=== PATIENT | female | born 1960 | race Caucasian/White ===

== ENCOUNTER 2025-03-12 13:09 | Outpatient (AMB) | payer OTHER, SELFPAY ==
--- OUTSIDE RECORDS SUMMARY | 2025-03-11 16:00 | XMS_ITS | Encounter Summary ---
Author Organization [employer] Address [address] [facility] [place] [address] Care Team Providers Care Regional Agronomist Name Role Phone Alexey Woods NP Primary Care Provider [phone] Holly TolbertW Unavailable [phone] Reason for Visit * Reason Comments Routine Cleaning Dental Exam Encounter Details Date Type Department Care Team (Late st Contact Info) Description 03/11/2025 4:00 PM EST Office Visit [facility] [address] [facility] [place] [address] Nitza Nichols Encounter for dental examination (Primary Dx); Periodontal disease Social History Tobacco Use Types Packs/Day Years Used Date Smoking Tobacco: Former Cigarettes Passive Smoke Exposure: Past Smokeless Tobacco: Never Comments:Quit at the age of 34 Alcohol Use Standard Drinks/Week Comments Yes 0 (1 standard drink = 0.6 oz pure alcohol) a few glasses of wine a few nights a week Alcohol Answer Date Recorded How often do you have a drink containing alcohol ? 0 03/11/2025 How many drinks containing a lcohol do you have on a typical day when you are drinking? 0 03/11/2025 How often do you have six or more drinks on one occasion? 0 03/11/2025 Depression Answer Date Recorded Patient Health Questionnaire-9 Score 16 01/08/2025 Patient Health Questionnaire-9 Score 16 01/08/2025 Last PHQ-9: Questionnaire Data Not on file 0 01/08/2025 Housing Stability Answer Date Recorded What is your housing situation today? I have jian lazaro 05/14/[address] you li ve. Do you have problems with any of the following? None of the above 05/14/2024 Food Insecurity Answer Date Recorded Within the past 12 months, y ou worried that your food would run out before you got money to buy more: Never True 05/14/2024 Within the past 12 months,th e food you bought just didn't last and you didn't have enough money to get more: Never True 06/2024 Transportation Answer Date Recorded In the past 12 months, has l ack of transportation kept you from medical appts, meetings, work or from getting things needed for daily living? No 05/14/2024 Utilities Answer Date Recorded In the past 12 months, has t he electric, gas, oil or water company threatened to shut off services in your home? No 05/14/2024 Depression Answer Date Recorded Patient Health Questionnaire-2 Score 6 01/08/2025 Internet Access Answer Date Recorded Internet Access Q1 Yes 05/14/2024 Internet Access Q2 Not on file 05/14/2024 Comments No Sex and Gender Information Value Date Recorded Sex Assigned at Female 02/10/2022 5:23 PM EDT Legal Sex Female 8:39 PM EDT Gender Identity Female 02/10/2022 5:23 PM EDT Sexual Orientation Straight 02/10/2022 5: 23 PM EDT Occupation Industry Job Start Date Job End Date Not on file Not on file Not on file Not on file documented as of this encounter Last Filed Vital Signs Vital Sign Reading Time Taken Comments Blood Pressure 143/92 03/11/2025 4:53 PM EST Pulse 85 03/11/2025 4:53 PM EST Temperature - - Respiratory Rate - - Oxygen Saturation - - Inhaled Oxygen Concentration - - Weight - - Height - - Body Mass Index - - documented in this encounter Progress Notes * Nitza Nichols - 03/11/2025 4:00 PM EST Prophy + ARCHANA Subjective: Chief Complaint (CC):--routine cleaning Medical History: Reviewed, Objective: Oral Hygiene Status: Fair Gingival Description: pink inflamed, with mild bleeding on probing Oral Cancer Exam: within normal limits Periodontal Diagnosis: STAGE II grade 2 chronic periodontitis Calculus: Moderate Supra / Subgingival Radiographs Taken: Type -None Caries/Radiographic Findings: as on the chart Vital Signs: BP- 145/92 HR-85 Patient given a note to the physician to address the BP. Assessment: Risk Factors: SMOKER Plan / Treatment Provided: Hygiene Treatment: Full-mouth prophylaxis performed using ultrasonic and hand instruments Teeth polished with Pumice Interdental flossing completed Oral hygiene instructions given and reinforced Brushing technique, and flossing Evaluation/Treatment Planning (Dentist): Exam done by Dr. Holland. Tooth decay as charted. Fillings recommended Discussed findings with patient Recommended: Extractions and restorations as on chart. Recommendations: Follow-up in 6 months Patient Tolerance: Good Post-Treatment Instructions Given: Yes Patient did great Nitza Nichols documented in this encounter Plan of Treatment Upcoming Encounters Date Type Department Care Team (Late st Contact Info) Description 03/18/2025 3:00 PM EST Office Visit [facility] [address] [place] [address] Amalia Roth LLD [address] [place] [address] 03/19/2025 11:30 AM EST Office Visit [facility] [address] [place] [address] Alexey Woods NP [address] [place] [address] 09/16/2025 2:00 PM EDT Office Visit [facility] [address] [place] [address] Nitza Nichols Scheduled Orders Name Type Priority Associated Diagnoses Orde r Schedule Full Full PROPHYLAXIS - ADULT Dental Routine [address] arting 03/11/2025 PERIODIC ORAL EVALUATION - ESTABLISHED PATIENT Dental Routine 1 Occurren chava starting 03/11/2025 documented as of this encounter Procedures Procedure Name Priority Date/Time Associated Diagnosis Comments Full PROPHYLAXIS - ADULT Routine 025 4:00 PM EST PERIODIC ORAL EVALUATION - ESTABLISHED PATIENT Routine 03/11/2025 4:00 PM EST PERIODIC ORAL EVALUATION - ESTABLISHED PATIENT Routine 03/11/2025 4:00 PM EST ORAL HYGIENE INSTRUCTIONS Routine 2024 4:00 PM EST documented in this encounter Visit Diagnoses Diagnosis Encounter for dental examination- Primary Periodontal disease Unspecified gingival and periodontal disease documented in this encounter Additional Health Concerns Assessment Noted Time PHQ-9 Depression Total Score: 16 025 10:09 AM EDT documented as of this encounter Care Teams Regional Agronomist Relationship Specialty Start Date End Date Alexey Woods NP [address] [place] [address] PCP - General Internal Medicine 11/09/22 Holly Tolbert LCSW [address] [place] [address] Sql Developer Behavioral Health 12/10/22 documented as of this encounter
--- NOTE | 2025-03-12 13:17 | A.OFFVIS_ITS ---
Intake Visit Reasons: Gait balance Allergies Penicillins (PCN) Allergy (Unknown, Unverified 12/27/19 19:33) UNKNOWN Sulfa (Sulfonamide Antibiotics) (SULFA (SULFONAMIDE ANTIBIOTICS)) Allergy (Unknown, Unverified 12/27/19 19:33) UNKNOWN HPI Comments Details: The patient is a 64 year old individual presenting for evaluation of long- standing episodic vertigo and new, persistent balance problems. The patient reports a history of Meniere's disease, with episodic vertigo starting since the with the patient's first child. These episodes are characterized by intense, room-spinning vertigo, which come and go over a period of three to five days, occurring four to five times a year. Associated symptoms during vertigo attacks include nausea, past vomiting, and a sensation of affected hearing, though the patient denies ear fullness. The last attack was in September. Previous interventions include positional maneuvers performed by an ENT, vestibular therapy, and an unsuccessful trial of a diuretic, which was stopped due to intense dry mouth. In addition to the episodic vertigo, the patient reports a persistent decline in balance, noting an inability to perform activities like dancing and skating, which the patient previously enjoyed from ages 32 to 57. The patient feels dizzy, walks sideways, and bumps into people when walking. Past medical history includes a brain scan in the patient's 30s and a hearing test in September which confirmed hearing loss in the right ear. The patient also reports severe arthritis and a family history of an aunt who had Meniere's disease and cochlear implants. The patient consumes approximately three glasses of wine per week. Review of Systems Narrative Constitutional:? Complain of fatigue blurred vision and high blood pressure HEENT:? Complain of hearing loss and trouble swallowing Cardiovascular:?No chest pain, palpitations, orthopnea, PND, or leg swelling. Respiratory:? Complain of cough Gastrointestinal:? Complain of nausea. Genitourinary:? Complain of urinary urgency. Musculoskeletal:? Complain of joint pain back pain and neck pain. Neurological:? Complain of difficulty walking weakness problem sleeping dizziness. Psychiatric:?No anxiety, depression, mood swings, sleep disturbance, or hallucinations. Endocrine:? Complain of heat intolerance Hematologic/Lymphatic:?No easy bruising, bleeding, or lymphadenopathy. Integumentary (Skin):? Complain of rash and redness Allergic/Immunologic:?No seasonal allergies, hives, or recurrent infections. Physical Exam Neuro Other: Mental Status: Alert and oriented to person, place, and time. Normal attention. Normal spontaneous speech, fluency, and comprehension. No obvious issues with mood and memory. Affect is appropriate. Cranial Nerves: CN II: Visual roa full to confrontation, visual acuity intact. CN III, IV, : Pupils equal, round, reactive to light and accommodation. Extraocular movements are normal. CN V: Facial sensation is normal. CN VII: Facial movements symmetrical. CN VIII: Hearing intact to bedside conversation is normal. CN IX, X: Palate elevates symmetrically. CN XI: Shoulder shrug and head turn symmetrical. CN XII: Tongue midline without atrophy or fasciculations. Motor: Bulk and tone normal in all extremities. No significant muscle weakness in arms and legs. No drift. Reflexes: Deep tendon reflexes 2+ and symmetric. Plantar response down-going bilaterally. Coordination: Dttata-me-ljou with mild bilateral ataxia Gait and Station: Difficulty walking heel-to-toe. Extrapyramidal: Mild bilateral onspbe-pl-tksv ataxia and tremor. Speech: Normal; no dysarthria or tremor. Assessment & Plan Assessment & Plan (1) Meniere syndrome: Code(s): H81.09 - Meniere's disease, unspecified ear Category: Medical Qualifiers: Laterality: right Qualified Code(s): H81.01 - Meniere's disease, right ear (2) Ataxia: Code(s): R27.0 - Ataxia, unspecified Category: Medical Plan Impression: 1. Probably Meniere's syndrome 2. New onset of gait ataxia with mild cerebellar features Recommendations: 1. Reassurance and education 2. MRI of brain with and without contrast I explained to the patient that the diagnosis is consistent with Meniere's disease, which is a condition related to high pressure in the inner ear. I discussed that while it cannot be cured, it can be managed through strategies like a low-salt diet and, for acute episodes, diuretics, although I acknowledged the patient's prior intolerance to them. I also explained that the patient's persistent balance issues and tremor appear to be a separate neurological problem originating from the cerebellum. I have recommended a brain MRI to further investigate these cerebellar findings. I reassured the patient that I do not suspect a tumor and that the findings may be age-related, but the MRI is necessary for a definitive explanation. The patient was instructed on how to schedule the MRI and to arrange a follow-up visit to review the results. Orders: Orders MR head/brain wo/w con Today R27.0 - Ataxia, unspecified Coding Level of Care Code New Pt Level 4 (68678) Diagnoses Meniere's disease of right ear H81.01 Laterality: right Ataxia R27.0
--- OUTSIDE RECORDS SUMMARY | 2025-03-12 15:03 | XMS_ITS | Encounter Summary ---
Author Organization [facility] Address [address] [facility] [address] [place] [address] Phone Care Team Providers Care Associate Software Developer Name Role Phone Stephanie Pham MD Primary Care Provider [phone] Alexey Woods NP Primary Care Provide r Alexey Woods NP Primary Care Provide r Encounter Details Date Type Department Care Team (Late st Contact Info) Description 07/23/2021 Transcribe Orders Virtual Department [address] [place] [address] Alexey Woods, IVANNA [address] [place] [address] Pulmonary nodule (Primary Dx) Social History Tobacco Use Types Packs/Day Years Used Date Smoking Tobacco: Former Smokeless Tobacco: Never Alcohol Use Standard Drinks/Week Comments Yes 0 (1 standard drink = 0.6 oz pur e alcohol) daily wine Comments Unknown Sex and Gender Information Value Date Recorded Sex Assigned at Not on file Legal Sex Female 10:34 PM EDT Gender Identity Not on file Sexual Orientation Not on file documented as of this encounter Plan of Treatment Upcoming Encounters Date Type Department Care Team (Late st Contact Info) Description 02/20/2025 Procedure Pass [address] [place] [address] 02/20/[address] [place] [address] 03/12/2025 6:30 PM EST Hospital Encounter [facility], Bone Density - [address] [address] Alexey Woods NP [address] [place] [address] 03/26/2025 3:15 PM EST Appointment [address] [place] [address] Chet Dhillon MD [address] [place] [address] [email or web address] 03/26/2025 4:00 PM EST Appointment [address] [place] [address] Chet Dhillon MD [address] [place] [address] [email or web address] 06/11/2025 9:00 AM EST Office Visit [facility] Rheumatology [address] [place] [address] Rula Wu DO [address] [place] [address], [facility] [address] [place] [address] [email or web address] documented as of this encounter Visit Diagnoses Diagnosis Pulmonary nodule- Primary Other diseases of lung, not elsewhere classified documented in this encounter Care Teams Associate Software Developer Relationship Specialty Start Date End Date Stephanie Pham MD [address] [place] [address] PCP - General Internal Medicine 06/25/20 05/26/24 Alexey Woods NP [address] [place] [address] PCP - General Nurse Practitioner 05/27/24 09/19/24 Alexey Woods NP [address] [place] [address] PCP - General Nurse Practitioner 09/20/24 documented as of this encounter Additional Source Comments The information contained in this document represents components of the legal health record. It is not the complete legal health record[facility]
--- OUTSIDE RECORDS SUMMARY | 2025-03-12 15:03 | XMS_ITS | Encounter Summary ---
Author Organization [facility] Address [address] [employer] [facility] [address] [place] [address] Phone Care Team Providers Care Microsoft Office Instructor Name Role Phone Danay Vallez REINFORCING STEEL PLACER Unavailable [phone] Wild Rosales MD Unavailable [phone] Servando Lopez MD Unavailable [phone] Unknown, Unknown Primary Care Provider Stephanie Eldridge MD Primary Care Provider [phone] Alexey Woods NP Primary Care Provide r Alexey Woods CLUB MANAGER Primary Care Provide r Encounter Details Date Type Department Care Team (Latest Contact Info) Description 06/13/2020 Transcribe Orders Virtual Department [address] [place] [address] Brandy Vilchis PA [address] [place] [address]. [place] [address] [email or web address] Weight loss (Primary Dx) Social History Tobacco Use Types Packs/Day Years Used Date Smoking Tobacco: Never Smokeless Tobacco: Never Alcohol Use Standard Drinks/Week Comments Yes 0 (1 standard drink = 0.6 oz pur e alcohol) Comments Unknown Sex and Gender Information Value Date Recorded Sex Assigned at Not on file Legal Sex Female 10:34 PM EDT Gender Identity Not on file Sexual Orientation Not on file documented as of this encounter Plan of Treatment Upcoming Encounters Date Type Department Care Team (Late st Contact Info) Description 02/20/2025 Procedure Pass [address] [place] [address] 02/20/2025 Procedure Pass [address] [place] [address] 03/12/2025 6:30 PM EST Hospital Encounter [facility], Bone Density - [facility] [address] [place] [address] Alexey Woods, IVANNA [address] [place] [address] 03/26/2025 3:15 PM EST Appointment [address] [place] [address] Chet Dhillon MD [address] [place] [address] [email or web address] 03/26/2025 4:00 PM EST Appointment [address] [place] [address] Chet Dhillon MD [address] [place] [address] [email or web address] 06/11/2025 9:00 AM EST Office Visit [facility] Rheumatology [address] [place] [address] Rula Wu, DO [address] [place] [address], [address] [place] [address] [email or web address] documented as of this encounter Visit Diagnoses Diagnosis Weight loss- Primary Loss of weight documented in this encounter Care Teams Microsoft Office Instructor Relationship Specialty Start Date End Date Unknown, Unknown, [address] [place] [address] PCP - General 08/16/17 06/24/20 Stephanie Pham MD [address] [place] [address] PCP - General Internal Medicine 06/25/20 05/26/24 Alexey Woods, IVANNA [address] [place] [address] PCP - General Nurse Practitioner 05/27/24 09/19/24 Alexey Woods, IVANNA [address] [place] [address] PCP - General Nurse Practitioner 09/20/24 Danay Valle CNP [address] [place] [address] Historical LMR Provider 01/27/17 04/18/21 Wild Rosales MD [address] [address] Historical LMR Provider 01/27/17 04/18/21 Servando Lopez MD [address] [place] [address] Historical LMR Provider 01/27/17 2 documented as of this encounter Additional Source Comments The information contained in this document represents components of the legal health record. It is not the complete legal health record.[facility]
--- OUTSIDE RECORDS SUMMARY | 2025-03-12 15:03 | XMS_ITS | Encounter Summary ---
Author Organization [facility] Address [address] [facility] [address] [place] [address] Phone Care Team Providers Care Polisher Eyeglass Frames Name Role Phone Danay Vallez UTILITY SERVICE WORKER Unavailable [phone] Wild Rosales MD Unavailable [phone] Servando Lopez MD Unavailable [phone] Unknown, Unknown Primary Care Provider Stephanie Eldridge MD Primary Care Provider [phone] Alexey Woods PROJECT ADMINISTRATIVE ASSISTANT Primary Care Provide r Alexey Woods PROJECT ADMINISTRATIVE ASSISTANT Primary Care Provide r Reason for Referral * Physical Therapy (Routine) - Closed Specialty Diagnoses / Procedures Referred By Sanjuanita lugo Referred To Contact Physical Therapy Diagnoses Encounter for rehabilitation Heather Jimenez MD Phone: tel: fax: [email or web address] [address] [place] [address] Phone: tel: Referral ID Status Reason Start Date Expiration Date Visits Re quested Visits Authorized [id number] Closed 03/14/2020 03/14/2021 1 1 Encounter Details Date Type Department Care Team (Latest Contact Info) Description 03/14/2020 Transcribe Orders [facility] [address] [place] [address] Heather Jimenez MD [address] [place] [address] [email or web address] Encounter for rehabilitation (Primary Dx) Social History Tobacco Use Types Packs/Day Years Used Date Smoking Tobacco: Never Assessed Comments Unknown Sex and Gender Information Value Date Recorded Sex Assigned at Not on file Legal Sex Female 10:34 PM EDT Gender Identity Not on file Sexual Orientation Not on file documented as of this encounter Plan of Treatment Upcoming Encounters Date Type Department Care Team (Late st Contact Info) Description 02/20/2025 Procedure Pass [address] [place] [address] 02/20/[address] [place] [address] 03/12/2025 6:30 PM EST Hospital Encounter [facility], Bone Density - [facility] [address] [place] [address] Alexey Woods, IVANNA [address] [place] [address] 03/26/2025 3:15 PM EST Appointment [address] [place] [address] Chet Dhillon MD [address] [place] [address] [email or web address] 03/26/2025 4:00 PM EST Appointment [address] [place] [address] Chet Dhillon MD [address] [place] [address] [email or web address] 06/11/2025 9:00 AM EST Office Visit [facility] Rheumatology [address] [place] [address] Rula Wu DO [address] [facility], [address] [place] [address] [email or web address] Scheduled Referrals Name Type Priority Associated Diagnoses Orde r Schedule Ambulatory referral to [facility] Physical Therapy Outpatient Referral Routine Encounter for rehabilitation Ordered: 03/14/2020 documented as of this encounter Visit Diagnoses Diagnosis Encounter for rehabilitation- Primary documented in this encounter Care Teams Polisher Eyeglass Frames Relationship Specialty Start Date End Date Unknown, Unknown, [address] [place] [address] PCP - General 08/16/17 06/24/20 Stephanie Pham MD [address] [place] [address] PCP - General Internal Medicine 06/25/20 05/26/24 Alexey Woods NP [address] [place] [address] PCP - General Nurse Practitioner 05/27/24 09/19/24 Alexey Woods NP [address] [place] [address] PCP - General Nurse Practitioner 09/20/24 Danay Valle CNP [address] [place] [address] Historical LMR Provider 01/27/17 04/18/21 Wild Rosales MD [address] [address] Historical LMR Provider 01/27/17 04/18/21 Servando Lopez MD [address] [place] [address] Historical LMR Provider 01/27/17 2 documented as of this encounter Additional Source Comments The information contained in this document represents components of the legal health record. It is not the complete legal health record.[facility]
--- OUTSIDE RECORDS SUMMARY | 2025-03-12 15:03 | XMS_ITS | Encounter Summary ---
Author Organization [facility] Address [address] [facility] [address] [place] [address] Phone Care Team Providers Care Flour Tester Name Role Phone Stephanie Pham MD Primary Care Provider [phone] Alexey Woods NP Primary Care Provide r Alexey Woods NP Primary Care Provide r Encounter Details Date Type Department Care Team (Late st Contact Info) Description 12/22/2022 Transcribe Orders Virtual Department [address] [place] [address] Alexey Woods, IVANNA [address] [place] [address] Breast screening (Primary Dx) Social History Tobacco Use Types Packs/Day Years Used Date Smoking Tobacco: Former Smokeless Tobacco: Never Alcohol Use Standard Drinks/Week Comments Yes 0 (1 standard drink = 0.6 oz pur e alcohol) daily wine Education Answer Date Recorded Are you interested in more education? Not on jhonatan e 08/06/2022 Are you concerned about learning? Not on file 08/06/2022 No 08/06/2022 No 08/06/2022 Digital Access Answer Date Recorded No 09/04/2022 No 09/04/2022 Reliable internet access at home? Not on file 09/04/2022 Device with a working camera? Not on file Comments Unknown Sex and Gender Information Value Date Recorded Sex Assigned at Not on file Legal Sex Female 10:34 PM EDT Gender Identity Not on file Sexual Orientation Not on file documented as of this encounter Plan of Treatment Upcoming Encounters Date Type Department Care Team (Late st Contact Info) Description 02/20/2025 Procedure Pass [address] [place] [address] 02/20/2025 Procedure Pass [address] [place] [address] 03/12/2025 6:30 PM EST Hospital Encounter [facility], Bone Density - [address] [address] Alexey Woods NP [address] [place] [address] 03/26/2025 3:15 PM EST Appointment [address] [place] [address] Chet Dhillon MD 6 [place] [address] [email or web address] 03/26/2025 4:00 PM EST Appointment [address] [place] [address] Chet Dhillon MD [address] [place] [address] [email or web address] 06/11/2025 9:00 AM EST Office Visit [facility] Rheumatology [address] [place] [address] Rula Wu DO 22 [facility], [address] [place] [address] [email or web address] documented as of this encounter Visit Diagnoses Diagnosis Breast screening- Primary Breast screening, unspecified documented in this encounter Care Teams Flour Tester Relationship Specialty Start Date End Date Stephanie Pham MD [address] [place] [address] [email or web address] PCP - General Internal Medicine 06/25/20 05/26/24 Alexey Woods NP [address] [place] [address] PCP - General Nurse Practitioner 05/27/24 09/19/24 Alexey Woods NP [address] [place] [address] PCP - General Nurse Practitioner 09/20/24 documented as of this encounter Additional Source Comments The information contained in this document represents components of the legal health record. It is not the complete legal health record.[facility]
--- OUTSIDE RECORDS SUMMARY | 2025-03-12 15:03 | XMS_ITS | Clinical Summary ---
Author Organization [employer] Address 75 [facility] 7t [place] [address] Care Team Providers Care Churn Drill Operator Name Role Phone Alexey Woods NP Primary Care Provider Holly TolbertW Unavailable Allergies Active Allergy Reactions Criticality Noted Date Comments Penicillins Itching,Rash Low 03/08/2022 Sulfa Antibiotics Itching,Rash Low 03/08/2022 Clobetasol Propionate Rash Low 06/20/2023 Topiramate Rash Low 05/16/2024 Medications * This document contains information received from the source organization and may not represent a complete record from that organization. ergocalciferol (Vitamin D-2) 1.25 MG (11299 UT) capsuleIndicatio ns:Vitamin D deficiency Take 1 capsule (1.25 mg) by mouth 1 (one) time per week. 8 capsule 5 Active PARoxetine (Paxil) 20 MG tabletIndication s:Severe episode of recurrent major depressive disorder, without psychotic features (CMS/HCC) (HCC) Take 1 tablet (20 mg) by mouth in the morning. 90 tablet 3 5 Active Blood Pressure kitIndications:P rimary hypertension 1 Units 3 (three) times a week. Test blood pressure 3 times a week, record results. [place] blood pressure at rest is < 130/80. Please call clinic if readings are < 90/60 or > 160/100. 1 kit 5 Active lisinopril 10 MG tabletIndication s:Primary hypertension Take 2 tablets (20 mg) by mouth in the morning. 5 Active Additional Information Patient taking differently:20 mg Oral Every morning,Indications: Hypertension, Reported on 01/08/2025 calcipotriene (Dovonex) 0.005 % creamIndications :Psoriasis Apply topically 2 times daily. 60 g 1 Active clobetasol (Temovate) 0.05 % creamIndications :Psoriasis Apply topically 2 times daily. 30 g 1 Active modafinil (Provigil) 200 MG tabletIndication s:Primary narcolepsy without cataplexy Take 1 tablet (200 mg) by mouth in the morning and 1 tablet (200 mg) at noon. 60 tablet 2 5 05/07/19 26 Active Active Problems Problem Noted Date Diagnosed Date Primary narcolepsy without cataplexy 09/12/2024 Scoliosis of lumbar spine 06/20/2024 Degeneration of intervertebral disc of lumbar re gion 06/20/2024 Degenerative disc disease, thoracic 05/17/2024 Vitamin D deficiency 05/17/2024 Scoliosis of thoracic spine 05/14/2024 Cocaine use disorder (CMS/HCC) 01/19/2023 Moderate episode of recurren t major depressive disorder (CMS/HCC) 12/10/2022 Anxiety 12/10/2022 Primary hypertension 11/07/2022 Bulimia 11/07/2022 Pulmonary nodule 11/07/2022 Alcohol related disorder 03/08/2022 Resolved Problems Problem Noted Date Diagnosed Date Resolved Date Hyperlipidemia 05/17/2024 06/20/2024 Persistent depressive disorder 01/19/2023 10/02/2024 Substance use disorder 12/10/202210/02 Current severe episode of ma jaime depressive disorder without psychotic features (CMS/HCC) 11/07/2022 10/02/2024 Polysubstance abuse 11/07/2022 10/03/19 25 Encounters * This document contains information received from the source organization and may not represent a complete record from that organization. Date Type Department Care Team Description 03/11/2025 4:00 PM EST Office Visit [facility] [address] [place] [address] Nitza Nichols Encounter for dental examination (Primary Dx); Periodontal disease 02/06/2025 4:20 PM EDT Telemedicine [address] [address] Kisha Zaman MD Psoriasis (Primary Dx); Primary narcolepsy without cataplexy; Excessive daytime sleepiness 01/30/2025 Telephone [facility] [address] [place] [address] Alexey Woods NP Med Refill 01/08/2025 10:00 AM EDT Office Visit [address] [address] Alexey Woods NP Psoriasis (Primary Dx); Primary hypertension 01/03/[address] [address] Alexey Woods NP Rash 12/26/2024 3:00 PM EDT Office Visit [facility] [address] [place] [address] Amalia Roth LLD 12/20/2024 10:30 AM EDT Office Visit [address] [address] Alexey Woods NP Psoriasis (Primary Dx); Primary hypertension; Cocaine use disorder ([facility]) 12/17/[address] [address] Alexey Woods NP RTT, ongoing rash from Last 3 Months Immunizations Immunization Administration Dates Next Due Hep A, Adult 04/28/2023,09/04/2021 Hep B, adult 12/21/2022,10/09/2021,09/04/2021 INFLUENZA INJECTABLE QUADRIV ALANT CCIIV4 MDCK Multi-dose vial 01/10/2023 Influenza, IIV3, injectable 02/27/2024, 2 Influenza, Injectable, MDCK, w/preservative 02/09 MMR 06/21/2024 Moderna Covid-19 Vaccine 12+ 02/27/2024,04/28/19 24,03/17/2021 Pfizer Covid-19 Vaccine 12+ 02/05/2022,,07/30/2020 Pfizer Covid-19 Vaccine 12+ Bivalent 02/05/2022 Tdap 05/16/2020 Family History Medical History Relation Name Comments Glaucoma Mother Macular degeneration Paternal Grandmother Relation Name Status Comments Maternal Grandmother Mother Paternal Grandmother Social History Tobacco Use Types Packs/Day Years Used Date Smoking Tobacco: Former Cigarettes Passive Smoke Exposure: Past Smokeless Tobacco: Never Tobacco Cessation:Counseling Given: Not Answered Comments:Quit at the age of 34 Alcohol [...] file Not on file Not on file Last Filed Vital Signs Vital Sign Reading Time Taken Comments Blood Pressure 143/92 03/11/2025 4:53 PM EST Pulse 85 03/11/2025 4:53 PM EST Temperature 36.4 C (97.5 F) 01/08/2025 10:04 AM EDT Respiratory Rate 16 05/26/2023 12:3 7 PM EST Oxygen Saturation 98% 01/08/2025 10: 04 AM EDT Inhaled Oxygen Concentration - - Weight 56.6 kg (124 lb 12.8 oz) 025 10:04 AM EDT Height 168.9 cm (5' 6.5 ) 01/08/2025 10 :04 AM EDT Body Mass Index 19.84 01/08/2025 10:04 AM EDT Plan of Treatment Upcoming Encounters Date Type Department Care Team (Late st Contact Info) Description 03/18/2025 3:00 PM EST Office Visit [facility] [address] [place] [address] Amalia Roth LLD [address] [place] [address] 03/19/2025 11:30 AM EST Office Visit [facility] [address] [place] [address] Alexey Woods NP 70 [place] [address] 09/16/2025 2:00 PM EDT Office Visit [facility] [address] [place] [address] Nitza Singh Health Maintenance Due Date Last Done Comments CT Colonography 1960 Colonoscopy 1960 Colorectal Cancer Screening 1960 FIT DNA/Cologuard 1962 FIT 1962 FOBT 1960 Sigmoidoscopy 1962 Mammogram 2002 Pneumococcal Vaccine: 50+ Years (1 of 1 - PCV) 2012 Zoster Vaccines (1 of 2) 2012 COVID-19 Vaccine ( season) 2024 02/27/2024, 04/28/2023, 02/05/2022, Additional history exists Influenza Vaccine (#1) 2024 , 02/27/2024, 01/10/2023, Additional history exists SDOH Screening 05/14/2025 05/14/2024 Dental X-Ray: Bitewings 05/22/2025 05/21/2024 Depression Monitoring 07/08/2025 01/08/2025, 025 Dental Oral Exam 09/10/2025 03/11/2025, 04/2024, 05/21/2024 Dental Prophylaxis 09/10/2025 03/11/2025, 05/21/2024 Disability Screening 01/08/2026 01/08/2025 Pap Smear 01/24/2026 01/24/2023, 12/27/2022 Alcohol/Substance Use Screening 03/11/2026 03/11/2025 Tobacco Screening 03/11/2026 03/11/2025 Dental X-Ray: Full Mouth 05/22/2027 05/21/2024 Cervical Cancer Screening 01/25/2028 HPV/Cotest 01/25/2028 01/24/2023, 12/27/2022 Lipid Panel 05/15/2029 05/15/2024, 05/28/2020 DTaP/Tdap/Td Vaccines (2 - Td or Tdap) 05/16/2030 05/16/2020 RSV Patients and Patients Aged 60 years or older (1 - 1-dose 75+ series) 2037 Hepatitis B Vaccines Completed 12/21/2022, 10/09/2021, 09/04/2021 Hepatitis A Vaccines Aged Out 04/28/2023, 09/05/19 22 No longer eligible based on patient's age to complete this topic HIV Screening Completed 10/17/2024, 05/28/2021 Hepatitis C Screening Completed 10/17/2024 , 11/17/2022, 05/28/2021 HIB Vaccines Aged Out No longer eligi ble based on patient's age to complete this topic HPV Vaccines Aged Out No longer eligi ble based on patient's age to complete this topic IPV Vaccines Aged Out No longer eligi ble based on patient's age to complete this topic Meningococcal B Vaccine Aged Out No l onger eligible based on patient's age to complete this topic Meningococcal Vaccine Aged Out No leobardo taisha eligible based on patient's age to complete this topic RSV under 20 months Aged Out No longe r eligible based on patient's age to complete this topic Rotavirus Vaccines Aged Out No longer eligible based on patient's age to complete this topic Procedures Procedure Name Priority Date/Time Associated Diagnosis Comments PERIODIC ORAL EVALUATION - ESTABLISHED PATIENT Routine 03/11/2025 4:00 PM EST ORAL HYGIENE INSTRUCTIONS Routine 03/11/2025 4:00 PM EST Full PROPHYLAXIS - ADULT Routine 03/11/2025 4:00 PM EST PERIODIC ORAL EVALUATION - ESTABLISHED PATIENT Routine 03/11/2025 4:00 PM EST 10 MDFF(V) RESIN-BASED COMPOSITE - 3 SURF, ANTERIOR Routine 12/26/2024 3:00 PM EDT AMB REFERRAL TO PHYSICAL MEDICINE REHAB/PHYSIATRY Routine 12/25/2024 Degenerative disc disease, thoracic Degeneration of intervertebral disc of lumbar region, unspecified whether pain present Scoliosis of thoracic spine, unspecified scoliosis type Chronic low back pain without sciatica, unspecified back pain laterality HEPATITIS C AB W/REFLEX TO HCV QUANT NAAT IF POSITIVE Routine 10/17/2024 Livedo reticularis HIV ANTIBODY/ANTIGEN, 4TH GENERATION Routine 10/17/2024 Livedo reticularis INTRAORAL - COMPLETE SERIES OF RADIOGRAPHIC IMAGES Routine 05/21/2024 2:00 PM EST LIPID PANEL, STANDARD Routine 05/15/2024 Primary hypertension PAP, LB WITH CT/GC AND HPV Routine 01/24/2023 10:03 PM EDT from Last 3 Months or Most Recently Relevant to Health Maintenance Results * Referral to Physical Medicine Rehab (12/25/2024) Alexey Woods NP OUTPATIENT REFERRAL ORDERABL ES Final Result * HIV Antibody/Antigen, 4th Generation (10/17/2024) Blood Alexey Woods NP LAB BLOOD ORDERABLES Final R esult Performing Organization Address City/[facility]/ZIP Co de Phone Number EXTERNAL LAB * Hepatitis C Virus (HCV) Antibody With Reflex to Quantitative Real-time PCR [[id number]] (10/17/2024) Blood Venous blood specimen / Unknown Alexey Woods NP LAB BLOOD ORDERABLES Final R esult Performing Organization Address [facility]/ZIP Co de Phone Number EXTERNAL LAB * Lipid Panel, Standard (05/15/2024) Blood Venous blood specimen / Unknown Alexey Woods NP LAB BLOOD ORDERABLES Final R esult Performing Organization Address [facility] Co de Phone Number EXTERNAL LAB * PAP, LB with CT/GC and HPV (01/24/2023 10:03 PM EDT) PAP, LB WITH CT/GC AND HPV Patient Name: SUSHANT PÉREZ [facility] Comment: Patient : 1960 (Age: 62) Lab Collection Date: 01/24/2023 Accession Date: 01/24/2023 Sign Out Date: 02/04/2023 Tissue Source: 1: THINPREP WEB APPLICATION TESTER PAP TEST, CERVICAL: Final Diagnosis: NEGATIVE FOR INTRAEPITHELIAL LESION OR MALIGNANCY. Satisfactory for evaluation. Endocervical/transformation zone present. Procedures/Addenda: Human Papilloma Virus, High-Risk (Any Dx) Status: Signed Out Interpretation: Negative Methodology: ProteoMediX Aptima HPV mRNA assay (Nucleic Acid Amplification Test, NAAT). Clinical History: Date of Last Menstrual Period: not available Menstrual History: Post-menopausal Contraceptive History: not available Ancillary Testing: HPV (any dx) Case imaged by the ThinPrep Imaging System with manual rescreening or review. Clinical History (other): DIAGNOSTIC FOLLOW UP, LOW RISK Phone #: [phone], On-Call Pathologist: [id number] Testing performed or reported by [facility], a Service of [facility], [address] [place] [address] Marco Kim MD, [place] [facility]# [id number] 01/24/2023 10:0 3 PM EDT 01/24/2023 10:13 PM EDT [facility] LAB CYTOLOGY ORDERABLES F inal Result [facility] [address] [place] [address] from Last 3 Months or Most Recently Relevant to Health Maintenance Insurance [facility] , [address] [place] [address] DENTAL - HSN PARTIAL (MEDICAID) [facility] PARTIAL [id number] , [address] [place] [address] Care Teams Churn Drill Operator Relationship Specialty Start Date End Date Alexey Woods NP [address] [place] [address] PCP - General Internal Medicine 11/09/22 Holly Tolbert LCSW [address] [place] [address] [facility] 12/10/22
--- OUTSIDE RECORDS SUMMARY | 2025-03-12 15:03 | XMS_ITS | Encounter Summary ---
Author Organization [facility] Address [address] [place] [address] Phone Care Team Providers Care X Ray Developer Name Role Phone Danay Vallez [employer] Unavailable [phone] Wild Rosales MD Unavailable [phone] Servando Lopez MD Unavailable [phone] Unknown, Unknown Primary Care Provider Stephanie Eldridge MD Primary Care Provider [phone] Alexey Woods NP Primary Care Provide r Alexey Woods COOLING TOWER OPERATOR Primary Care Provide r Encounter Details Date Type Department Care Team (Latest Contact Info) Description 05/28/2020 Transcribe Orders [address] [place] [address] Brandy Vilchis PA [address] [place] [address]. [place] [address] [email or web address] Weight loss (Primary Dx) Social History [...] Encounters Date Type Department Care Team (Late Contact Info) Description 02/20/2025 Procedure Pass [address] [place] [address] 02/20/2025 Procedure Pass [address] [place] [address] 03/12/2025 6:30 PM EST Hospital Encounter [facility], Bone Density - [facility] [address] [place] [address] Alexey Woods, IVANNA [address] [place] [address] 03/26/2025 3:15 PM EST Appointment [address] [place] [address] Chet Dhillon MD [address] [place] [address] [email or web address] 03/26/2025 4:00 PM EST Appointment [address] [place] [address] Chet Dhillon MD [address] [place] [address] [email or web address] 06/11/2025 9:00 AM EST Office Visit [facility] Rheumatology [address] [place] [address] Rula Wu, [address] [place] [address], [address] [place] [address] [email or web address] documented as of this encounter Results * TSH with reflex (05/28/2020 11:57 AM EST) TSH 2.59 0.27 - 4.20 uIU/mL [facility] Blood 05/28/2020 11:5 7 AM EST 05/28/2020 12:00 PM EST us Brandy WYATT LAB BLOOD BKR ORDERABLES Ebonie l Result [address] [address] * (ABNORMAL) Comprehensive metabolic panel (05/28/2020 11:57 AM EST) SODIUM 140 133 - 146 mmol/L [facility] POTASSIUM 4.0 3.3 - 5.1 mmol/L [facility] CHLORIDE 102 96 - 108 mmol/L [facility] CO2 27 21 - 35 mmol/L [facility] BUN 20(H) 6 - 19 mg/dL [facility] CREATININE 1.10 0.5 - 1.5 mg/dL [facility] GLUCOSE 119(H) 70 - 99 mg/dL [facility] ALBUMIN 4.4 3.9 - 4.8 g/dL [facility] TOTAL PROTEIN 7.2 6.5 - 8.0 g/dL [facility] CALCIUM 9.3 8.4 - 10.3 mg/dL [facility] ALKALINE PHOSPHATASE 75 39 - 117 U/L [facility] TOTAL BILIRUBIN 0.4 0.0 - 1.2 mg/dL [facility] AST 27 0 - 37 U/L [facility] ALT 16 0 - 40 U/L [facility] GLOBULIN 2.8 1 - 4.8 g/dL [facility] EGFR 56(L) >59 mL/min/1.7 3m2 [facility] Comment:Estimated glomerular filtration rate calculated using the CKD-EPI equation. ANION GAP 15 10 - 20 mmol/L [facility] Blood 05/28/2020 11:5 7 AM EST 05/28/2020 12:00 PM EST Brandy WYATT LAB BLOOD BKR ORDERABLES Ebonie l Result Performing Organization Address City/[facility]/ZIP Co de Phone Number [address] [address] * (ABNORMAL) CBC and differential (05/28/2020 11:57 AM EST) WBC 6.30 4.00 - 11.00 K/uL [facility] Comment:Note Reference Range updates to all CBC and Differential results. RBC 4.62 3.72 - 5.30 M/uL [facility] HGB 13.3 11.4 - 15.9 g/dL [facility] Comment:Note updated Referen ce Ranges for all CBC and Differential results. HCT 40.2 34.2 - 46.8 % [facility] PLT 301 140 - 430 K/uL [facility] MCV 87.0 78.0 - 97.0 fL [facility] MCH 28.8 25.0 - 33.0 pg [facility] MCHC 33.1 32.0 - 36.0 g/dL [facility] RDW 12.8 11.0 - 16.0 % [facility] MPV 9.8 8.4 - 12.8 fl [facility] NRBC 0.00 0 /100 WBCs [facility] ABSOLUTE NRBC 0.00 0 K/uL [facility] DIFF METHOD Auto [facility] NEUTS 57.6 43.0 - 75.0 % [facility] LYMPHS 28.6 18.2 - 47.4 % [facility] MONOS 9.7 4.00 - 11.00 % [facility] EOS 2.2 0.0 - 8.0 % [facility] BASOS 1.6 0.0 - 2.0 % [facility] Granulocytes, immature (%) 0.3 0.0 - 0.9 % [facility] ABSOLUTE NEUTS 3.63 1.80 - 7.70 K/uL [facility] ABSOLUTE LYMPHS 1.80 1.00 - 3.10 K/uL [facility] ABSOLUTE MONOS 0.61 0.20 - 0.80 K/uL [facility] ABSOLUTE EOS 0.14 0.00 - 0.80 K/uL [facility] ABSOLUTE BASOS 0.10(H) 0.00 - 0.09 K/uL [facility] Granulocytes, immature 0.02 0.00 - 0.05 K/uL [facility] Blood 05/28/2020 11:5 7 AM EST 05/28/2020 12:00 PM EST Brandy WYATT LAB BLOOD BKR ORDERABLES Ebonie l Result Performing Organization Address [facility] Co de Phone Number [address] [address] * (ABNORMAL) Lipid panel (05/28/2020 11:57 AM EST) HDL 81 mg/dL [facility] Comment: Interpretation <40 mg/dL: Low HDL cholesterol (major risk factor for CHD) Greater than or equal to 60 mg/dL: High HDL cholesterol ( negative risk factor for CHD) HDL - cholesterol is affected by a number of factors, e.g. smoking, excerise, hormones, sex and age. CHOLESTEROL 198 0 - 240 mg/dL [facility] TRIGLYCERIDES 79 30 - 160 mg/dL [facility] LDL 101 50 - 129 mg/dL [facility] Comment: LDL levels in terms of risk for coronary heart disease: <100 mg/dL: Optimal 100-129 mg/dL: Near or above optimal 130-159 mg/dL: Borderline high 160-189 mg/dL: High >190 mg/dL: Very High CARDIAC RISK RATIO 2.4(L) 3.3 - 4.4 C [facility] Blood 05/28/2020 11:5 7 AM EST 05/28/2020 12:00 PM EST Brandy WYATT LAB BLOOD BKR ORDERABLES Ebonie l Result Performing Organization Address City/[facility] Co de Phone Number [address] [address] documented in this encounter Visit Diagnoses Diagnosis Weight loss- Primary Loss of weight documented in this encounter Care Teams X Ray Developer Relationship Specialty Start Date End Date Unknown, Unknown, [address] [place] [address] PCP - General 08/16/17 06/24/20 Stephanie Pham MD [address] [place] [address] PCP - General Internal Medicine 06/25/20 05/26/24 Alexey Woods, IVANNA [address] [place] [address] PCP - General Nurse Practitioner 05/27/24 09/19/24 Alexey Woods, IVANNA [address] [place] [address] PCP - General Nurse Practitioner 09/20/24 Danay Valle CNP [address] [address] Historical LMR Provider 01/27/17 04/18/21 Wild Rosales MD [address] [address] Historical LMR Provider 01/27/17 04/18/21 Servando Lopez MD [address] [place] [address] Historical LMR Provider 01/27/17 2 documented as of this encounter Additional Source Comments The information contained in this document represents components of the legal health record. It is not the complete legal health record.[facility]
--- OUTSIDE RECORDS SUMMARY | 2025-03-12 15:03 | XMS_ITS | Encounter Summary ---
Author Organization [facility] Address [address] [facility] [address] [place] [address] Phone Care Team Providers Care Stone Carver Name Role Phone Stephanie Pham MD Primary Care Provider [phone] Alexey Woods NP Primary Care Provide r Alexey Woods JAVA ANDROID DEVELOPER Primary Care Provide r Encounter Details Date Type Department Care Team (Late st Contact Info) Description 12/22/2021 Procedure Pass [facility], Ct Scan - [address] [address] Social History Tobacco Use Types Packs/Day Years [...] (Late st Contact Info) Description 02/20/[address] [place] [address] 02/20/[address] [place] [address] 03/12/2025 6:30 PM EST Hospital Encounter [facility], Bone Density - [address] [address] Alexey Woods NP [address] [place] [address] 03/26/2025 3:15 PM EST Appointment [address] [place] [address] Chet Dhillon MD 6 [place] [address] [email or web address] 03/26/2025 4:00 PM EST Appointment [address] [place] [address] Chet Dhillon MD [address] [place] [address] [email or web address] 06/11/2025 9:00 AM EST Office Visit [facility] Rheumatology 22 [place] [address] Rula Wu DO [address] [place] [address], [address] [place] [address] [email or web address] documented as of this encounter Visit Diagnoses Not on filedocumented in this encounter Care Teams Stone Carver Relationship Specialty Start Date End Date Stephanie Pham MD [address] [place] [address] PCP - General Internal Medicine 06/25/20 05/26/24 Alexey Woods NP [address] [place] [address] PCP - General Nurse Practitioner 05/27/24 09/19/24 Alexey Woods NP 70 [place] [address] PCP - General Nurse Practitioner 09/20/24 documented as of this encounter Additional Source Comments The information contained in this document represents components of the legal health record. It is not the complete legal health record.[facility]
--- OUTSIDE RECORDS SUMMARY | 2025-03-12 15:03 | XMS_ITS | Encounter Summary ---
Author Organization [facility] Address [address] [facility] [address] [place] [address] Phone Care Team Providers Care Family Court Registrar Name Role Phone Danay Vallez SUPERVISOR WINTER Unavailable [phone] Wild Rosales MD Unavailable [phone] Servando Lopez MD Unavailable [phone] Unknown, Unknown Primary Care Provider Stephanie Eldridge MD Primary Care Provider Alexey Woods NP Primary Care Provide r Alexey Woods SOFTWARE DESIGN ENGINEER Primary Care Provide r Encounter Details Date Type Department Care Team (Late st Contact Info) Description 05/21/2020 Ancillary Orders Virtual Department 30 [place] [address] Brandy Vilchis PA [address] [place] [address]. [place] [address] [email or web address] Breast screening Social History Tobacco Use Types Packs/Day Years [...] st Contact Info) Description 02/20/2025 Procedure Pass [address] [place] [address] 02/20/2025 Procedure Pass [address] [place] [address] 03/12/2025 6:30 PM EST Hospital Encounter [facility], Bone Density - [address] [address] Alexey Woods, IVANNA 70 [place] [address] 03/26/2025 3:15 PM EST Appointment [address] [place] [address] Chet Dhillon MD [address] [place] [address] [email or web address] 03/26/2025 4:00 PM EST Appointment [address] [place] [address] Chet Dhillon MD [address] [place] [address] [email or web address] 06/11/2025 9:00 AM EST Office Visit [facility] Rheumatology 22 [place] [address] Rula Wu, [address] [place] [address], [address] [place] [address] [email or web address] documented as of this encounter Visit Diagnoses Diagnosis Breast screening Breast screening, unspecified documented in this encounter Care Teams Family Court Registrar Relationship Specialty Start Date End Date Unknown, Unknown, [address] [place] [address] PCP - General 08/16/17 06/24/20 Stephanie Pham MD [address] [place] [address] PCP - General Internal Medicine 06/25/20 05/26/24 Alexey Woods NP 73 [place] [address] PCP - General Nurse Practitioner 05/27/24 09/19/24 Alexey Woods NP [address] [place] [address] PCP - General Nurse Practitioner 09/20/24 Danay Valle CNP [address] [place] [address] Historical LMR Provider 01/27/17 04/18/21 Wlid Rosales MD [address] [place] [address] Historical LMR Provider 01/27/17 04/18/21 Servando Lopez MD [address] [place] [address] Historical LMR Provider 01/27/17 2 documented as of this encounter Additional Source Comments The information contained in this document represents components of the legal health record. It is not the complete legal health record.[facility]
--- OUTSIDE RECORDS SUMMARY | 2025-03-12 15:03 | XMS_ITS | Encounter Summary ---
Author Organization [facility] Address [address] [facility] [address] [place] [address] Phone Care Team Providers Care Urologic Surgeon Name Role Phone Danay Vallez TRANSACTIONAL PARALEGAL Unavailable [phone] Wild Rosales MD Unavailable [phone] Servando Lopez MD Unavailable [phone] Stephanie Pham MD Primary Care Provider Alexey Woods NP Primary Care Provide r Alexey Woods NP Primary Care Provide r Encounter Details Date Type Department Care Team (Latest Contact Info) Description 08/11/2020 Transcribe Orders Virtual Department 30 [place] [address] Alexey Woods, MEDICAL CODING INSTRUCTOR 70 [place] [address] Nausea and vomiting, intractability of vomiting not specified, unspecified vomiting type (Primary Dx) Social History Tobacco Use Types [...] st Contact Info) Description 02/20/2025 Procedure Pass [address] [place] [address] 02/20/2025 Procedure Pass [address] [place] [address] 03/12/2025 6:30 PM EST Hospital Encounter [facility], Bone Density - [facility] [address] [place] [address] Alexey Woods, IVANNA 70 [place] [address] 03/26/2025 3:15 PM EST Appointment [address] [place] [address] Chet Dhillon MD [address] [place] [address] [email or web address] 03/26/2025 4:00 PM EST Appointment [address] [place] [address] Chet Dhillon MD [address] [place] [address] [email or web address] 06/11/2025 9:00 AM EST Office Visit [facility] Rheumatology [address] [place] [address] Rula Wu, DO [address] [place] [address], [address] [place] [address] [email or web address] documented as of this encounter Results * FL UGI SERIES DOUBLE CONTRAST (08/22/2020 11:10 AM EDT) Anatomical Region Laterality Modality Abdomen Computed Radiogr aphy 08/22/2020 10:5 3 AM EDT Impressions 08/22/2020 11:27 AM EDT 1.Normal upper GI series. 2.New small L4-5 vertebrae lucency of uncertain etiology and significance. Recommend dedicated lumbar spine radiographs. Narrative 08/22/2020 11:27 AM EDT COMPARISON: CT abdomen pelvis 05/09/2008. Lumbar spine x-rays 11/22/2011. MRI lumbar spine 02/04/2012. 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 Image heart and lungs are within normal limits. New mild lumbar levoscoliosis and progressive severe left L5-S1 facet arthropathy. New small lucency in the right L4 vertebral body. Soft tissues are unremarkable. A double contrast upper GI series was performed. Low dose pulsed fluoroscopy was utilized with limited exposures to reduce radiation dose. Esophagus is normal in contour and motility. No stricture, mass, reflux, ulceration or hiatal hernia. No gastric outlet obstruction, mass or fold thickening. Duodenal bulb and C-sweep are normal. Procedure Note Bishop Gonzales MD - 08/22/2020 COMPARISON: CT abdomen pelvis 05/09/2008. Lumbar spine x-rays 11/22/2011.MRI lumbar spine 02/04/2012. 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 Image heart and lungs are withinnormal limits. New mild lumbar levoscoliosis and progressive severe leftL5-S1 facet arthropathy. New small lucency in the right L4 vertebral body.Soft tissues are unremarkable. A double contrast upper GI series was performed. Low dose pulsedfluoroscopy was utilized with limited exposures to reduce radiation dose.Esophagus is normal in contour and motility. No stricture, mass, reflux,ulceration or hiatal hernia. No gastric outlet obstruction, mass or foldthickening. Duodenal bulb and C-sweep are normal. IMPRESSION: 1.Normal upper GI series. 2.New small L4-5 vertebrae lucency of uncertain etiology and significance.Recommend dedicated lumbar spine radiographs. Alexey Woods NP IMG FL MISC Final Result documented in this encounter Visit Diagnoses Diagnosis Nausea and vomiting, intractability of vomiting not specified, unspecified vomiting type- Primary Nausea and vomiting, intractability of vomiting not specified, unspecified vomiting type documented in this encounter Care Teams Urologic Surgeon Relationship Specialty Start Date End Date Stephanie Pham MD [address] [place] [address] PCP - General Internal Medicine 06/25/20 05/26/24 Alexey Woods NP [address] [place] [address] PCP - General Nurse Practitioner 05/27/24 09/19/24 Alexey Woods NP [address] [place] [address] PCP - General Nurse Practitioner 09/20/24 Danay Valle CNP [address] [place] [address] Historical LMR Provider 01/27/17 04/18/21 Wild Rosales MD [address] [place] [address] Historical LMR Provider 01/27/17 04/18/21 Servando Lopez MD [address] [place] [address] Historical LMR Provider 01/27/17 2 documented as of this encounter Additional Source Comments The information contained in this document represents components of the legal health record. It is not the complete legal health record.[facility]
--- OUTSIDE RECORDS SUMMARY | 2025-03-12 15:03 | XMS_ITS | Encounter Summary ---
Author Organization [facility] Address [address] [facility] [address] [place] [address] Phone Care Team Providers Care Slide Fasteners Inspector Name Role Phone Danay Vallez CHURCH MUSICIAN Unavailable [phone] Wild Rosales MD Unavailable [phone] Servando Lopez MD Unavailable [phone] Unknown, Unknown Primary Care Provider Stephanie [place]ridge MD Primary Care Provider [phone] Alexey Woods SUSTAINABLE AGRICULTURE SPECIALIST Primary Care Provide r Alexey Woods SUSTAINABLE AGRICULTURE SPECIALIST Primary Care Provide r Encounter Details Date Type Department Care Team (Late st Contact Info) Description 06/18/2020 Procedure Pass [address] [place] [address] Social History Tobacco Use Types Packs/Day Years [...] (Late st Contact Info) Description 02/20/[address] [place] [address] 02/20/2025 Procedure Pass [address] [place] [address] 03/12/2025 6:30 PM EST Hospital Encounter [facility], Bone Density - [address] [address] Alexey Woods, SUSTAINABLE AGRICULTURE SPECIALIST 70 [place] [address] 03/26/2025 3:15 PM EST Appointment [address] [place] [address] Chet Dhillon MD [address] [place] [address] [email or web address] 03/26/2025 4:00 PM EST Appointment [address] [place] [address] Chet Dhillon MD [address] [place] [address] [email or web address] 06/11/2025 9:00 AM EST Office Visit [facility] Rheumatology 22 [place] [address] Rula Wu, [address] [place] [address], [address] [place] [address] [email or web address] documented as of this encounter Visit Diagnoses Not on filedocumented in this encounter Care Teams Slide Fasteners Inspector Relationship Specialty Start Date End Date Unknown, Unknown, [address] [place] [address] PCP - General 08/16/17 06/24/20 Stephanie Pham MD [address] [place] [address] PCP - General Internal Medicine 06/25/20 05/26/24 Alexey Woods NP [address] [place] [address] PCP - General Nurse Practitioner 05/27/24 09/19/24 Alexey Woods NP 70 [place] [address] PCP - General Nurse Practitioner 09/20/24 Danay Valle, DAVIDSON [address] [address] Historical LMR Provider 01/27/17 04/18/21 Wild Rosales MD [address] [address] Historical LMR Provider 01/27/17 04/18/21 Servando Lopez MD [address] [place] [address] Historical LMR Provider 01/27/17 2 documented as of this encounter Additional Source Comments The information contained in this document represents components of the legal health record. It is not the complete legal health record.[facility]
--- OUTSIDE RECORDS SUMMARY | 2025-03-12 15:03 | XMS_ITS | Encounter Summary ---
Author Organization [facility] Address [address] [facility] [address] [place] [address] Phone Care Team Providers Care Rn Telephonic Name Role Phone Stephanie Pham MD Primary Care Provider [phone] Alexey Woods NP Primary Care Provide r Alexey Woods NP Primary Care Provide r Encounter Details Date Type Department Care Team (Late st Contact Info) Description 11/16/2022 Transcribe Orders Virtual Department 30 [place] [address] Alexey Woods, IVANNA 70 [place] [address] Low back pain of over 3 months duration (Primary Dx) Social History Tobacco Use Types [...] st Contact Info) Description 02/20/2025 Procedure Pass [address] [place] [address] 02/20/2025 Procedure Pass [address] [place] [address] 03/12/2025 6:30 PM EST Hospital Encounter [facility] Bone Density [address] [address] Alexey Woods, IVANNA 70 [place] [address] 03/26/2025 3:15 PM EST Appointment [address] [place] [address] Chet Dhiloln MD 6 [place] [address] [email or web address] 03/26/2025 4:00 PM EST Appointment [address] [place] [address] Chet Dhillon MD 6 [place] [address] [email or web address] 06/11/2025 9:00 AM EST Office Visit [facility] Rheumatology 22 [place] [address] Rula Wu, [address] [place] [address], [address] [address] [email or web address] documented as of this encounter Visit Diagnoses Diagnosis Low back pain of over 3 months duration- Primary documented in this encounter Care Teams Rn Telephonic Relationship Specialty Start Date End Date Stephanie Pham MD 73 [place] [address] [email or web address] PCP - General Internal Medicine 06/25/20 05/26/24 Alexey Woods NP 73 [place] [address] PCP - General Nurse Practitioner 05/27/24 09/19/24 Alexey Woods NP [address] [place] [address] PCP - General Nurse Practitioner 09/20/24 documented as of this encounter Additional Source Comments The information contained in this document represents components of the legal health record. It is not the complete legal health record.[facility]
--- OUTSIDE RECORDS SUMMARY | 2025-03-12 15:03 | XMS_ITS | Encounter Summary ---
Author Organization [facility] Address [address] [facility] [address] [place] [address] Phone Care Team Providers Care Clerk Television Production Name Role Phone Stephanie Pham MD Primary Care Provider [phone] Alexey Woods NP Primary Care Provide r Alexey Woods NP Primary Care Provide r Encounter Details Date Type Department Care Team (Late st Contact Info) Description 05/28/2021 Transcribe Orders Virtual Department 30 [place] [address] Alexey Woods, IVANNA 70 [place] [address] Weight loss (Primary Dx) Social History Tobacco [...] st Contact Info) Description 02/20/2025 Procedure Pass [address] [place] [address] 02/20/[address] [place] [address] 03/12/2025 6:30 PM EST Hospital Encounter [facility], Bone Density - [facility] 30 [place] [address] Alexey Woods, IVANNA [address] [place] [address] 03/26/2025 3:15 PM EST Appointment [address] [place] [address] Chet Dhillon MD [address] [place] [address] [email or web address] 03/26/2025 4:00 PM EST Appointment [address] [place] [address] Chet Dhillon MD [address] [place] [address] [email or web address] 06/11/2025 9:00 AM EST Office Visit [facility] Rheumatology [address] [place] [address] Rula Wu, [address] [place] [address], [address] [place] [address] [email or web address] documented as of this encounter Results * XR CHEST PA AND LATERAL 2 VIEWS (06/01/2021 10:54 AM EST) Anatomical Region Laterality Modality Chest Computed Radiogr aphy 06/01/2021 11:5 3 AM EST Impressions 06/01/2021 12:01 PM EST 1.1 cm predominantly radiolucent nodule in the right lower lobe. 2.No focal consolidation. RECOMMENDATION: Recommend CT chest for further evaluation of impression #1. This report has been forwarded to an automated communication system which will electronically notify appropriate providers of potentially important findings. Narrative 06/01/2021 12:01 PM EST XR CHEST PA AND LATERAL 2 VIEWS COMPARISON: None. FINDINGS: Devices/Tubes/Lines: None. Lungs: There is a 1 cm predominantly radiolucent nodule in the right lower lobe. No focal consolidation. Pleura: No pleural effusion or pneumothorax. Heart/Mediastinum: The heart and mediastinum are normal. Bones/Soft Tissues: No significant skeletal abnormality. Procedure Note Lucinda River MD - 06/01/2021 XR CHEST PA AND LATERAL 2 VIEWS COMPARISON: None. FINDINGS: Devices/Tubes/Lines: None. Lungs: There is a 1 cm predominantly radiolucent nodule in the right lowerlobe. No focal consolidation. Pleura: No pleural effusion or pneumothorax. Heart/Mediastinum: The heart and mediastinum are normal. Bones/Soft Tissues: No significant skeletal abnormality. IMPRESSION: 1.1 cm predominantly radiolucent nodule in the right lower lobe. 2.No focal consolidation. RECOMMENDATION: Recommend CT chest for further evaluation of impression #1. This report has been forwarded to an automated communication system whichwill electronically notify appropriate providers of potentially importantfindings. Alexey Woods PROJECT DEVELOPMENT MANAGER IMG XR CHEST Final Result documented in this encounter Visit Diagnoses Diagnosis Weight loss- Primary Loss of weight Weight loss Loss of weight documented in this encounter Care Teams Clerk Television Production Relationship Specialty Start Date End Date Stephanie Pham MD [address] [place] [address] PCP - General Internal Medicine 06/25/20 05/26/24 Alexey Woods NP [address] [place] [address] PCP - General Nurse Practitioner 05/27/24 09/19/24 Alexey Woods NP 70 [place] [address] PCP - General Nurse Practitioner 09/20/24 documented as of this encounter Additional Source Comments The information contained in this document represents components of the legal health record. It is not the complete legal health record.[facility]
--- OUTSIDE RECORDS SUMMARY | 2025-03-12 15:03 | XMS_ITS | Encounter Summary ---
Author Organization [facility] Address [address] [facility] [address] [place] [address] Phone Care Team Providers Care Button Sewer Hand Name Role Phone Stephanie Pham MD Primary Care Provider [phone] Alexey Woods NP Primary Care Provide r Alexey Woods NP Primary Care Provide r Reason for Referral * MRI/CAT Scan - Closed Specialty Diagnoses / Procedures Referred By Sanjuanita lugo Referred To Contact Radiology Diagnoses Acute right flank pain Right upper quadrant abdominal pain Procedures CT Abdomen/Pelvis CHG CT SCAN,ABDOMENT AND PELVIS,W/O CONTRAST Alexey Woods NP Phone: tel: fax: Referral ID Status Reason Start Date Expiration Date Visits Re quested Visits Authorized [id number] Closed 06/20/2023 08/19/2023 1 1 Encounter Details Date Type Department Care Team (Late st Contact Info) Description 06/20/2023 Transcribe Orders Virtual Department [address] [place] [address] Alexey Woods NP [address] [place] [address] Acute right flank pain (Primary Dx); Right upper quadrant abdominal pain Social History Tobacco Use Types Packs/Day Years [...] (Late st Contact Info) Description 02/20/[address] [place] [address] 02/20/[address] [place] [address] 03/12/2025 6:30 PM EST Hospital Encounter [facility] - [address] [address] Alexey Woods, ANIMAL ECOLOGIST [address] [place] [address] 03/26/2025 3:15 PM EST Appointment [address] [place] [address] Chet Dhillon MD [facility] [place] [address] [email or web address] 03/26/2025 4:00 PM EST Appointment [address] [place] [address] Chet Dhillon MD [address] [place] [address] [email or web address] 06/11/2025 9:00 AM EST Office Visit [facility] Rheumatology [address] [place] [address] Rula Wu DO 22 [facility], [address] [place] [address] [email or web address] documented as of this encounter Results * CT ABDOMEN/PELVIS (KIDNEY STONE) WITHOUT CONTRAST (06/21/2023 3:12 PM EDT) Anatomical Region Laterality Modality Abdomen, Pelvis Computed Tomogra phy 06/21/2023 5:12 PM EDT Impressions 06/22/2023 6:10 AM EDT No urolithiasis or hydronephrosis. Narrative 06/22/2023 6:[address] ABDOMEN/PELVIS (KIDNEY STONE) WITHOUT CONTRAST Referring clinician's provided indication for this examination in Epic: Outside Radiology Order; ACUTE ONSET RIGH FLANK PAIN TECHNIQUE: Multidetector-row CT of the abdomen and pelvis was performed without intravenous contrast using tailored dose modulation techniques. Images were reconstructed in the axial, coronal, and sagittal planes. COMPARISON: None FINDINGS: Lower Chest: Normal. No consolidation or pleural effusions. Liver: No suspicious focal liver lesion. Biliary: No biliary ductal dilatation. Spleen: Normal. No splenomegaly or focal lesions. Pancreas: Normal. No masses or ductal dilatation. Adrenal Glands: Normal. No nodules. Kidneys/Ureters: No solid renal mass or hydronephrosis. Hypodense right lower pole renal lesion is most likely a benign cyst. Bowel: No bowel obstruction or wall thickening. Normal appendix. Peritoneum/Retroperitoneum: Normal. No masses, pneumoperitoneum, or fluid. Lymph Nodes: Normal. No lymphadenopathy. Pelvic Organs/Bladder: Normal. No mass. Vessels: No abdominal aortic aneurysm. Vascular calcification. Bones/Soft Tissues: No suspicious focal osseous lesion. Spine degenerative changes. Procedure Note Emanuel Evans MD - 06/22/2023 CT ABDOMEN/PELVIS (KIDNEY STONE) WITHOUT CONTRAST Referring clinician's provided indication for this examination in Epic:Outside Radiology Order; ACUTE ONSET RIGH FLANK PAIN TECHNIQUE: Multidetector-row CT of the abdomen and pelvis was performedwithout intravenous contrast using tailored dose modulation techniques.Images were reconstructed in the axial, coronal, and sagittal planes. COMPARISON: None FINDINGS: Lower Chest: Normal. No consolidation or pleural effusions. Liver: No suspicious focal liver lesion. Biliary: No biliary ductal dilatation. Spleen: Normal. No splenomegaly or focal lesions. Pancreas: Normal. No masses or ductal dilatation. Adrenal Glands: Normal. No nodules. Kidneys/Ureters: No solid renal mass or hydronephrosis. Hypodense rightlower pole renal lesion is most likely a benign cyst. Bowel: No bowel obstruction or wall thickening. Normal appendix. Peritoneum/Retroperitoneum: Normal. No masses, pneumoperitoneum, orfluid. Lymph Nodes: Normal. No lymphadenopathy. Pelvic Organs/Bladder: Normal. No mass. Vessels: No abdominal aortic aneurysm. Vascular calcification. Bones/Soft Tissues: No suspicious focal osseous lesion. Spine degenerativechanges. IMPRESSION: No urolithiasis or hydronephrosis. Alexey Woods NP IMG CT ABD/PELVIS Fin al Result documented in this encounter Visit Diagnoses Diagnosis Acute right flank pain- Primary Right upper quadrant abdominal pain Acute right flank pain Right upper quadrant abdominal pain documented in this encounter Care Teams Button Sewer Hand Relationship Specialty Start Date End Date Stephanie Pham MD [address] [place] [address] PCP - General Internal Medicine 06/25/20 05/26/24 Alexey Woods NP [address] [place] [address] PCP - General Nurse Practitioner 05/27/24 09/19/24 [place] [address] PCP - General Nurse Practitioner 09/20/24 documented as of this encounter Additional Source Comments The information contained in this document represents components of the legal health record. It is not the complete legal health record.[facility]
--- OUTSIDE RECORDS SUMMARY | 2025-03-12 15:03 | XMS_ITS | Encounter Summary ---
Author Organization [employer] Address [address] [facility] 7t [place] [address] Care Team Providers Care E Marketing Specialist Name Role Phone Alexey Woods NP Primary Care Provider [phone] Holly TolbertW Unavailable [phone] Reason for Visit * Reason Onset Date Comments Med Refill 01/30/2025 Encounter Details Date Type Department Care Team (Late st Contact Info) Description 01/30/2025 Telephone [facility] MEDICAL [address] [place] [address] Alexey Woods, IVANNA [address] [facility] [place] [place] [address] Med Refill Social History Tobacco Use Types Packs/Day Years [...] have a drink containing alcohol ? 0 01/08/2025 How many drinks containing a lcohol do you have on a typical day when you are drinking? 0 01/08/2025 How often do you have six or more drinks on one occasion? 0 01/08/2025 Depression Answer Date Recorded Patient Health Questionnaire-9 [...] on file documented as of this encounter Miscellaneous Notes * Telephone Encounter - Nayeli Barrett [place] - 01/31/2025 3:39 PM EDT Dovonex and Temovate are in medication list, do not see bactroban. Please advise. * Telephone Encounter - Shanice Selby - 01/30/2025 3:18 PM EDT Patient called to refill prescription: mupirocin (Bactroban) 2 % ointment Sig: Apply topically 3 times daily for 10 days. Pharmacy: [id number] - SANDEEP SMITH - [facility] AC HINTON HERMINIA: 01/08/25 in person with JL NOV: 02/06/25 telehealth with JASWINDER and 03/19/25 in person with JL documented in this encounter Plan of Treatment Upcoming Encounters Date Type Department Care Team (Late st Contact Info) Description 03/18/2025 3:00 PM EST Office Visit [facility] [address] [place] [address] Amalia Roth LLD 73 [place] [address] 03/19/2025 11:30 AM EST Office Visit [facility] [address] [place] [address] Alexey Woods NP [address] [place] [address] 09/16/2025 2:00 PM EDT Office Visit [facility] [address] [place] [address] Nitza Nichols documented as of this encounter Visit Diagnoses Diagnosis Psoriasis Other psoriasis documented in this encounter Additional Health Concerns Assessment Noted Time PHQ-9 Depression Total Score: 16 025 10:09 AM EDT documented as of this encounter Care Teams E Marketing Specialist Relationship Specialty Start Date End Date Alexey Woods NP [address] [place] [address] PCP - General Internal Medicine 11/09/22 Holly Tolbert LCSW 73 [place] [address] Training Specialist Behavioral Health 12/10/22 documented as of this encounter
--- OUTSIDE RECORDS SUMMARY | 2025-03-12 15:03 | XMS_ITS | Encounter Summary ---
Author Organization [facility] Address [address] [facility] [address] [place] [address] Phone Care Team Providers Care Bingo Attendant Name Role Phone Stephanie Pham MD Primary Care Provider [phone] Alexey Woods NP Primary Care Provide r Alexey Woods NP Primary Care Provide r Reason for Referral * MRI/CAT Scan - Closed Specialty Diagnoses / Procedures Referred By Sanjuanita lugo Referred To Contact Radiology Diagnoses Pulmonary nodule Procedures CT Chest Alexey Woods NP Phone: tel: fax: Referral ID Status Reason Start Date Expiration Date Visits Re quested Visits Authorized [id number] Closed 12/22/2021 12/22/2022 1 1 Encounter Details Date Type Department Care Team (Late st Contact Info) Description 12/22/2021 Ancillary Orders Virtual Department [address] [place] [address] Alexey Woods NP [address] [place] [address] Pulmonary nodule Social History Tobacco Use Types Packs/Day Years [...] st Contact Info) Description 02/20/2025 Procedure Pass [address] [place] [address] 02/20/2025 Procedure Pass [address] [place] [address] 03/12/2025 6:30 PM EST Hospital Encounter [address] [address] Alexey Woods, IVANNA [address] [place] [address] 03/26/2025 3:15 PM EST Appointment [address] [place] [id number] Chet Dhillon MD [address] [place] [address] [email or web address] 03/26/2025 4:00 PM EST Appointment [address] [place] [id number] Chet Dhillon MD [address] [place] [address] [email or web address] 06/11/2025 9:00 AM EST Office Visit [facility] Rheumatology [address] [place] [id number] Rula Wu DO [address] [place] [address], [address] [place] [address] [email or web address] documented as of this encounter Results * CT CHEST WITH CONTRAST (01/01/2022 12:09 PM EDT) Anatomical Region Laterality Modality Chest Computed Tomogra phy 01/02/2022 7:05 AM EDT Impressions 01/02/2022 12:07 PM EDT -No correlate for the apparent right lower lobe finding on prior chest radiograph, suggesting that it was likely either artifactual or a nipple shadow. No suspicious pulmonary nodule. -Few sub-4 mm groundglass nodules in the left upper lobe, almost certainly benign. Consider follow-up chest CT in 3-6 months. This report has been forwarded to an automated communication system which will electronically notify appropriate providers of potentially important findings. Narrative 01/02/2022 12:[address] CHEST WITH CONTRAST TECHNIQUE: Multidetector CT of the chest was performed with intravenous contrast using tailored dose modulation techniques. COMPARISON: None FINDINGS: Devices/Tubes/Lines: None. Lungs: Central airways are patent. At least three sub-4 mm groundglass nodules in the left upper lobe, including a 4 mm nodule (4:52), 2 mm nodule (4:56), and 4 mm triangular nodule (4:62). Pleura: Benign biapical pleuroparenchymal scarring. No pleural effusion or pneumothorax. Mediastinum: Normal. No thyroid nodules. Heart and pericardium are normal. Lymph Nodes: 4 mm short axis right hilar node (4:80), likely reactive. No enlarged supraclavicular, axillary, mediastinal, or hilar lymph nodes. Upper Abdomen: Normal. No abnormality detected in the visualized upper abdomen. Chest Wall: Normal. No chest wall mass. Bones: Normal. No suspicious lytic or blastic lesions. Procedure Note Emanuel Evans MD - 01/02/2022 CT CHEST WITH CONTRAST TECHNIQUE: Multidetector CT of the chest was performed with intravenouscontrast using tailored dose modulation techniques. COMPARISON: None FINDINGS: Devices/Tubes/Lines: None. Lungs: Central airways are patent. At least three sub-4 mm groundglassnodules in the left upper lobe, including a 4 mm nodule (4:52), 2 mmnodule (4:56), and 4 mm triangular nodule (4:62). Pleura: Benign biapical pleuroparenchymal scarring. No pleural effusion orpneumothorax. Mediastinum: Normal. No thyroid nodules. Heart and pericardium arenormal. Lymph Nodes: 4 mm short axis right hilar node (4:80), likely reactive. Noenlarged supraclavicular, axillary, mediastinal, or hilar lymph nodes. Upper Abdomen: Normal. No abnormality detected in the visualized upperabdomen. Chest Wall: Normal. No chest wall mass. Bones: Normal. No suspicious lytic or blastic lesions. IMPRESSION: -No correlate for the apparent right lower lobe finding on prior chestradiograph, suggesting that it was likely either artifactual or a nippleshadow. No suspicious pulmonary nodule. -Few sub-4 mm groundglass nodules in the left upper lobe, almost certainlybenign. Consider follow-up chest CT in 3-6 months. This report has been forwarded to an automated communication system whichwill electronically notify appropriate providers of potentially importantfindings. Alexey Woods SILK SCREEN PRINTER IMG CT CHEST Final Result documented in this encounter Visit Diagnoses Diagnosis Pulmonary nodule Other diseases of lung, not elsewhere classified Pulmonary nodule Other diseases of lung, not elsewhere classified documented in this encounter Care Teams Bingo Attendant Relationship Specialty Start Date End Date Stephanie Pham MD [address] [place] [address] PCP - General Internal Medicine 06/25/20 05/26/24 Alexey Woods NP [address] [place] [address] PCP - General Nurse Practitioner 05/27/24 09/19/24 Alexey Woods NP [address] [place] [address] PCP - General Nurse Practitioner 09/20/24 documented as of this encounter Additional Source Comments The information contained in this document represents components of the legal health record. It is not the complete legal health record.[facility]
--- OUTSIDE RECORDS SUMMARY | 2025-03-12 15:04 | XMS_ITS | Encounter Summary ---
Author Organization [facility] Address [address] [employer] [facility] [address] [place] [address] Phone Care Team Providers Care Cold Mill Inspector Name Role Phone Alexey Woods SLUICE TENDER Primary Care Provide r Reason for Visit * Reason Onset Date Comments Establish Care 02/15/2025 Encounter Details Date Type Department Care Team (Late st Contact Info) Description 02/15/2025 Telephone [facility] Rheumatology [address] [place] [address] Alexey Woods, IVANNA [address] [place] [address] Establish Care Social History Tobacco Use Types Packs/Day Years Used Date Smoking Tobacco: Former Smokeless Tobacco: Never Alcohol Use Standard Drinks/Week Comments Yes 0 (1 standard drink = 0.6 oz pur e alcohol) daily wine Education Answer Date Recorded Are you interested in more education? Not on jhonatan e 08/06/2022 Are you concerned about learning? Not on file 08/06/2022 No 08/06/2022 No 08/06/2022 Food Answer Date Recorded Within the past 6 months we worried whether our food would run out before we got money to buy more. Never True 09/20/2024 Within the past 6 months the food we bought just didn't last and we didn't have enough money to get more. Never True Residential Stability Answer Date Recor ded What is your housing situation today? I have jian sing 09/20/2024 How many times have you move d in the past 12 months? Zero (I did not move) 09/20/2024 Paying for Meds Answer Date Recorded Do you have trouble paying for medicines? No 09/20/2024 Paying Utility Bills Answer Date Record ed Do you have trouble paying your heating or elect ricity bill? No 09/20/2024 Transportation Answer Date Recorded Has the lack of transportati on kept you from medical appointments or from getting medications? No 09/20/2024 Digital Access Answer Date Recorded No 09/20/2024 Yes 09/20/2024 Do you have reliable internet access at home? Ye s 09/20/2024 Do you have a device (e.g., phone, tablet, computer) with a working camera? Yes 09/20/2024 Intimate Partner Violence Answer Date R ecorded Are you denied basic needs s uch as food, clothing, or medical care? No 09/20/2024 In the past 12 months have y ou been in a relationship with a person who hurts, threatens, or tries to control you? No 09/20/2024 Are you denied basic needs s uch as food, clothing, or medical care? No 09/20/2024 In the past 12 months have y ou been in a relationship with a person who hurts, threatens, or tries to control you? No 09/20/2024 Comments Unknown Sex and Gender Information Value Date Recorded Sex Assigned at Not on file Legal Sex Female 10:34 PM EDT Gender Identity Not on file Sexual Orientation Not on file documented as of this encounter Progress Notes * Anny Araujo - 02/27/2025 3:47 PM EST Clementina from [facility] called in to follow up stating a referral was sent over on 02/12. Please contact and advise. Central Support Kaiawhina Kohanga Reo (Please do not reply to this user; this inbox is not monitored.) Thank you. * Cristofer Amos - 02/21/2025 4:26 PM EST Pt called in to schedule, please contact and advise Central Support Kaiawhina Kohanga Reo (Please do not reply to this user; this inbox is not monitored.) Thank you. * Cristofer Amos - 02/15/2025 1:13 PM EST Referral/SFA Notification Saida, We are notifying you that the patient called to schedule a new patient appointment. The referral is not listed on file or in the media tab. The patient has informed us that the referral was faxed out. Please review the SFA and contact the patient with the referral determination if it is on file or not. Thank you If caller not the patient: Name: Relationship: Referral Order Details Diagnosis: PA or RA Reason/Specify: Referred To Name: Received Referral SFA Date: Referral Fax Out Dates: 02/11 from Dermatology - Dermatology Appt Scheduled Date: Approved Scheduling by: Additional information: Agent Action: > Route Encounter to FD Pool > Reason for Call: Referral > Comment: Attached Referral to Upcoming Appt Needed, OR Call Back & Locate Referral in SFA Needed > Reiterate Scripting: Provide our referral not on file scripting Required Scripting: If the referral is not on file: Saida, thank you for calling. I see that you'vementioned your provider faxed over a referral, but we have not yet received it on our end. Sometimes there can be a delay in processing or receiving faxes. Can you please confirm the date it was sent and the fax number that was used? Provide the caller with the office fax number. I will be happy to send a message over to the office for them to review their records and let you know if they've received it. documented in this encounter Plan of Treatment Upcoming Encounters Date Type Department Care Team (Late st Contact Info) Description 02/20/2025 Procedure Pass [address] [place] [address] 02/20/2025 Procedure Pass [address] [place] [address] 03/12/2025 6:30 PM EST Hospital Encounter [facility] - [address] [address] Alexey Woods NP [address] [place] [address] 03/26/2025 3:15 PM EST Appointment [address] [place] [address] Chet Dhillon MD [address] [place] [address] [email or web address] 03/26/[email or web address] 4:00 PM EST Appointment [address] [place] [address] Chet Dhillon MD [address] [place] [address] [email or web address] 06/11/2025 9:00 AM EST Office Visit [facility] Rheumatology [address] [place] [address] Rula Wu, [address] [place] [address], [address] [place] [address] [email or web address] documented as of this encounter Visit Diagnoses Not on filedocumented in this encounter Care Teams Cold Mill Inspector Relationship Specialty Start Date End Date Alexey Woods NP [address] [place] [address] PCP - General Nurse Practitioner 09/20/24 documented as of this encounter Additional Source Comments The information contained in this document represents components of the legal health record. It is not the complete legal health record.[facility]
--- OUTSIDE RECORDS SUMMARY | 2025-03-12 15:04 | XMS_ITS | Encounter Summary ---
Author Organization [facility] Address [address] [place] [facility] [address] [place] [address] Phone Care Team Providers Care Charter Bus Driver Name Role Phone Stephanie Pham MD Primary Care Provider [phone] Alexey Woods NP Primary Care Provide r Alexey Woods NP Primary Care Provide r Encounter Details Date Type Department Care Team (Late st Contact Info) Description 05/14/2024 Transcribe Orders Virtual Department [address] [place] [address] Alexey Woods, IVANNA [address] [place] [address] Encounter for screening mammogram for malignant neoplasm of breast (Primary Dx) Social History Tobacco Use Types [...] st Contact Info) Description 02/20/2025 Procedure Pass [address] [place] [address] 02/20/2025 Procedure Pass [address] [place] [address] 03/12/2025 6:30 PM EST Hospital Encounter [facility] [address] [address] Alexey Woods, IVANNA [address] [place] [address] 03/26/2025 3:15 PM EST Appointment [address] [place] [address] Chet Dhillon MD [address] [place] [address] [email or web address] 03/26/2025 4:00 PM EST Appointment [address] [place] [address] Chet Dhillon MD [address] [place] [address] [email or web address] 06/11/2025 9:00 AM EST Office Visit [facility] Rheumatology [address] [place] [address] Rula Wu DO 22 [facility], [address] [address] [email or web address] documented as of this encounter Visit Diagnoses Diagnosis Encounter for screening mammogram for malignant neoplasm of breast- Primary documented in this encounter Care Teams Charter Bus Driver Relationship Specialty Start Date End Date Stephanie Pham MD [address] [place] [address] [email or web address] PCP - General Internal Medicine 06/25/20 05/26/24 Alexey Woods NP [address] [place] [address] PCP - General Nurse Practitioner 05/27/24 09/19/24 Alexey Woods NP [address] [place] [address] PCP - General Nurse Practitioner 09/20/24 documented as of this encounter Additional Source Comments The information contained in this document represents components of the legal health record. It is not the complete legal health record.[facility]
--- OUTSIDE RECORDS SUMMARY | 2025-03-12 15:04 | XMS_ITS | Encounter Summary ---
Author Organization [facility] Address [address] [facility] [address] [place] [address] Phone Care Team Providers Care Ic Designer Standard Cells Name Role Phone Stephanie Pham MD Primary Care Provider [phone] Alexey Woods NP Primary Care Provide r Alexey Woods LEARNING TECHNOLOGIST Primary Care Provide r Encounter Details Date Type Department Care Team (Late st Contact Info) Description 06/20/2023 Procedure Pass [facility], Ct Scan - [address] [address] Social History Tobacco Use Types Packs/Day Years [...] st Contact Info) Description 02/20/2025 Procedure Pass [address] [place] [address] 02/20/2025 Procedure Pass [address] [place] [address] 03/12/2025 6:30 PM EST Hospital Encounter [facility], Bone Density - [address] [address] Alexey Woods, IVANNA 70 [place] [address] 03/26/2025 3:15 PM EST Appointment [address] [place] [address] Chet Dhillon MD [address] [place] [address] [email or web address] 03/26/2025 4:00 PM EST Appointment [address] [place] [address] Chet Dhillon MD [address] [place] [address] [email or web address] 06/11/2025 9:00 AM EST Office Visit [facility] Rheumatology [address] [place] [address] [place] [address] Rula Wu, [address] [place] [address], [facility] 203 [place] [address] [email or web address] documented as of this encounter Visit Diagnoses Not on filedocumented in this encounter Care Teams Ic Designer Standard Cells Relationship Specialty Start Date End Date Stephanie Pham MD [address] [place] [address] PCP - General Internal Medicine 06/25/20 05/26/24 Alexey Woods NP [address] [place] [address] PCP - General Nurse Practitioner 05/27/24 09/19/24 Alexey Woods NP 70 [place] [address] PCP - General Nurse Practitioner 09/20/24 documented as of this encounter Additional Source Comments The information contained in this document represents components of the legal health record. It is not the complete legal health record.[facility]
--- OUTSIDE RECORDS SUMMARY | 2025-03-12 15:04 | XMS_ITS | Encounter Summary ---
Author Organization [facility] Address [address] [place] [address] Phone Care Team Providers Care Manager Wound Care Name Role Phone Stephanie Pham MD Primary Care Provider [phone] Alexey Woods NP Primary Care Provide r Alexey Woods NP Primary Care Provide r Encounter Details Date Type Department Care Team (Late st Contact Info) Description 05/15/2024 Transcribe Orders Virtual Department 30 [place] [address] Alexey Woods, IVANNA [address] [place] [address] Low back pain, unspecified back pain laterality, unspecified chronicity, unspecified whether sciatica present (Primary Dx); Scoliosis of thoracic spine, unspecified scoliosis type Social History Tobacco Use Types Packs/Day Years [...] st Contact Info) Description 02/20/2025 Procedure Pass [address] [place] [address] 02/20/2025 Procedure Pass [address] [place] [address] 03/12/2025 6:30 PM EST Hospital Encounter [facility], Bone Density - [address] [address] Alexey Woods, SCHOOL BASED THERAPIST [address] [place] [address] 03/26/2025 3:15 PM EST Appointment [address] [place] [address] Chet Dhillon MD [address] [place] [address] [email or web address] 03/26/2025 4:00 PM EST Appointment [address] [place] [address] Chet Dhillon MD [address] [place] [address] [email or web address] 06/11/2025 9:00 AM EST Office Visit [facility] Rheumatology [address] [place] [address] Rula Wu DO [address] [place] [address], [facility] 203 [place] [address] [email or web address] Scheduled Orders Name Type Priority Associated Diagnoses Orde r Schedule DXA Screening Imaging Routine Low back pain, unspecified back pain laterality, unspecified chronicity, unspecified whether sciatica present Scoliosis of thoracic spine, unspecified scoliosis type Expected: 05/15/2024, Expires: 05/15/2025 documented as of this encounter Results * XR LUMBOSACRAL SPINE 2-3 VIEWS (05/16/2024 9:21 AM EST) Anatomical Region Laterality Modality L-spine Computed Radiogr aphy 05/16/2024 9:50 AM EST Impressions 05/16/2024 9:54 AM EST Scoliosis with chronic L2-3 degenerative disc disease and minimal grade 1 spondylolisthesis. No acute bony abnormality apparent. Narrative 05/16/2024 9:54 AM EST XR LUMBOSACRAL SPINE 2-3 VIEWS Referring clinician's provided indication for this examination in Epic: Outside Radiology Order; Low back pain of over 3 months duration// Scoliosis of thoracic spine, unspecified scoliosis type COMPARISON: 06/21/2023 CT FINDINGS: No acute vertebral fracture. Chronic prominent left convex scoliotic curvature with advanced degenerative L2-3 disc changes and minimal grade 1 spondylolisthesis at L2-3 grossly stable. No additional subluxation or progressive disc space narrowing apparent. Procedure Note Andi Szymanski MD - 05/16/2024 XR LUMBOSACRAL SPINE 2-3 VIEWS Referring clinician's provided indication for this examination in Epic:Outside Radiology Order; Low back pain of over 3 months duration//Scoliosis of thoracic spine, unspecified scoliosis type COMPARISON: 06/21/2023 CT FINDINGS: No acute vertebral fracture. Chronic prominent left convex scolioticcurvature with advanced degenerative L2-3 disc changes and minimal grade 1spondylolisthesis at L2-3 grossly stable. No additional subluxation orprogressive disc space narrowing apparent. IMPRESSION: Scoliosis with chronic L2-3 degenerative disc disease and minimal grade 1spondylolisthesis. No acute bony abnormality apparent. Alexey Woods SCHOOL BASED THERAPIST IMG XR SPINE Final Result * XR THORACIC SPINE 2 VIEW (05/16/2024 9:20 AM EST) Anatomical Region Laterality Modality T-spine Computed Radiogr aphy 05/16/2024 9:48 AM EST Impressions 05/16/2024 9:50 AM EST Scoliosis with degenerative disc disease but no evidence of acute bony pathology. Narrative 05/16/2024 9:50 AM EST XR THORACIC SPINE 2 VIEW Referring clinician's provided indication for this examination in Epic: Outside Radiology Order; Low back pain of over 3 months duration// Scoliosis of thoracic spine, unspecified scoliosis type COMPARISON: 01/01/2022 CT FINDINGS: No acute fracture or subluxation. Right convex scoliotic curvature somewhat more prominent than on the CT but this may be at least partially related to upright positioning. Chronic lower thoracic degenerative disc changes. Paraspinal soft tissues not grossly widened. Procedure Note Andi Szymanski MD - 05/16/2024 XR THORACIC SPINE 2 VIEW Referring clinician's provided indication for this examination in Epic:Outside Radiology Order; Low back pain of over 3 months duration//Scoliosis of thoracic spine, unspecified scoliosis type COMPARISON: 01/01/2022 CT FINDINGS: No acute fracture or subluxation. Right convex scoliotic curvaturesomewhat more prominent than on the CT but this may be at least partiallyrelated to upright positioning. Chronic lower thoracic degenerative discchanges. Paraspinal soft tissues not grossly widened. IMPRESSION: Scoliosis with degenerative disc disease but no evidence of acute bonypathology. Alexey Woods SCHOOL BASED THERAPIST IMG XR SPINE Final Result documented in this encounter Visit Diagnoses Diagnosis Low back pain, unspecified back pain laterality, unspecified chronicity, unspecified whether sciatica present- Primary Scoliosis of thoracic spine, unspecified scoliosis type Low back pain, unspecified back pain laterality, unspecified chronicity, unspecified whether sciatica present Scoliosis of thoracic spine, unspecified scoliosis type Low back pain, unspecified back pain laterality, unspecified chronicity, unspecified whether sciatica present Scoliosis of thoracic spine, unspecified scoliosis type documented in this encounter Care Teams Manager Wound Care Relationship Specialty Start Date End Date Stephanie Pham MD [address] [place] [address] [email or web address] PCP - General Internal Medicine 06/25/20 05/26/24 Alexey Woods NP [address] [place] [address] PCP - General Nurse Practitioner 05/27/24 09/19/24 Alexey Woods NP [address] [place] [address] PCP - General Nurse Practitioner 09/20/24 documented as of this encounter Additional Source Comments The information contained in this document represents components of the legal health record. It is not the complete legal health record.[facility]
--- OUTSIDE RECORDS SUMMARY | 2025-03-12 15:04 | XMS_ITS | Clinical Summary ---
Author Organization [facility] Address [address] [facility] [address] [place] [address] Phone Care Team Providers Care Delicatessen Clerk Name Role Phone Alexey Woods CHIEF OPHTHALMIC TECHNICIAN Primary Care Provide r Allergies Active Allergy Reactions Criticality Noted Date Comments Clobetasol Propionate Rash Low 06/20/2023 Penicillins Hives 10/20/2015 Sulfa (Sulfonamide Antibiotics) Rash Low 10/20/2015 Topiramate Rash Low 05/16/2024 Other Reaction(s): severe rash Medications PARoxetine (PAXIL) 30 MG tablet Take 1 tablet by mouth every morning. Active multivit with minerals/lutein (MULTIVITAMIN 50 PLUS ORAL) Multivitamin Act chema ergocalciferol (DRISDOL) 50,000 unit capsule Take 1.25 mg by mouth. Active Active Problems No known active problems Encounters Date Type Department Care Team Description 03/12/2025 6:30 PM EST Hospital Encounter [facility], Bone Density - [address] [address] Alexey Woods, IVANNA 03/04/2025 Transcribe Orders [facility] Rheumatology [address] [place] [address] Cristofer Mleo MD, PhD Arthritis (Primary Dx); Rash 02/27/2025 2:56 PM EST - 02/27/2025 11:59 PM EST Hospital Encounter [facility], X-Ray - [address] [place] [address] Chet Dhillon MD Discharge Disposition: Home or Self Care 02/27/2025 Ancillary Orders [facility], X-Ray - [address] [place] [address] Chet Dhillon MD Right hip pain (Primary Dx) 02/20/2025 Transcribe Orders Virtual Department 30 [place] [address] Chet Dhillon MD Radiculopathy, lumbar region (Primary Dx) 02/20/2025 Transcribe Orders Virtual Department 30 [place] [address] Chet Dhillon MD Radiculopathy, thoracic region (Primary Dx) 02/15/2025 Telephone [facility] Rheumatology [address] [place] [address] Alexey Woods NP Establish Care from Last 3 Months Immunizations Immunization Administration Dates Next Due Tdap 05/16/2020 02/16/2032 Social History Tobacco Use Types Packs/Day Years [...] on file Sexual Orientation Not on file Last Filed Vital Signs Vital Sign Reading Time Taken Comments Blood Pressure 107/69 09/20/2024 9:39 PM EDT Pulse 71 09/20/2024 9:39 PM EDT Temperature 36.8 C (98.3 F) 09/20/2024 9:39 PM EDT Respiratory Rate 16 09/20/2024 9:39 PM EDT Oxygen Saturation 98% 09/20/2024 9:39 PM EDT Inhaled Oxygen Concentration - - Weight 54.4 kg (120 lb) 09/20/2024 4:15 PM EDT Height 165.1 cm (5' 5 ) 05/27/2024 10:29 AM EST Body Mass Index 19.97 05/27/2024 10:29 AM EST Plan of Treatment Upcoming Encounters Date Type Department Care Team (Late st Contact Info) Description 02/20/[address] [place] [address] 02/20/[address] [place] [address] 03/12/2025 6:30 PM EST Hospital Encounter [facility], Bone Density - [facility] [address] [place] [address] Alexey Woods, CHIEF OPHTHALMIC TECHNICIAN [address] [place] [address] 03/26/2025 3:15 PM EST Appointment [address] [place] [address] Chet Dhillon MD [address] [place] [address] [email or web address] 03/26/2025 4:00 PM EST Appointment [address] [place] [address] Chet Dhillon MD [address] [place] [address] [email or web address] 06/11/2025 9:00 AM EST Office Visit [facility] Rheumatology [address] [place] [address] Rula Wu, DO [address] [facility], [facility] [address] [place] [address] [email or web address] Health Maintenance Due Date Last Done Comments DEPRESSION SCREENING 1974 SMOKING Hx and SMOKELESS TOBACCO SCREENING 06/26/1975 PAP SMEAR 06/26/1983 MAMMOGRAM 2002 COLOGUARD 06/26/2007 COLONOSCOPY 06/26/2007 COLORECTAL CANCER SCREENING 06/26/2007 FIT TEST 06/26/2007 FOBT 06/26/2007 SIGMOIDOSCOPY 06/26/2007 VIRTUAL COLONOSCOPY 06/26/2007 PNEUMOCOCCAL VACCINES (50+ years) (1 of 1 - PCV) 2012 ZOSTER VACCINES (1 of 2) 2012 INFLUENZA VACCINE (#1) 2024 02/27/2024, 2022 COVID-19 VACCINE ( season) 2024 02/27/2024, 04/28/2023, 02/05/2022, Additional history exists BLOOD PRESSURE 03/22/2025 09/20/2024 LIPID PANEL 05/15/2029 05/15/2024, 02/0 07/2024, 05/28/2020 Adult Td,Tdap Booster 05/16/2030 05/16/2020 RSV VACCINE (1 - 1-dose 75+ series) 2037 HEPATITIS A VACCINES Aged Out 04/28/2023, 09/05/19 22 No longer eligible based on patient's age to complete this topic HEPATITIS C SCREENING Completed 10/17/2024 , 05/28/2021, 05/28/2021 HIV ONE-TIME SCREENING (18-65 YEARS) Completed 10/17/2024 HIB VACCINES Aged Out No longer eligi ble based on patient's age to complete this topic MENINGOCOCCAL VACCINES (ACWY) Aged Out No longer eligible based on patient's age to complete this topic MENINGOCOCCAL VACCINES (B) Aged Out N o longer eligible based on patient's age to complete this topic Medical Devices Not on file Procedures Procedure Name Priority Date/Time Associated Diagnosis Comments XR HIP 2 VW RIGHT PLUS PELVIS Routine 02/27/2025 3:10 PM EST Right hip pain HEPATITIS C ANTIBODY, QUALITATIVE Routine 10/17/2024 3:48 PM EDT Livedo reticularis Primary hypertension LIPID PANEL Routine 05/15/2024 3:43 PM EST Essential hypertension, malignant from Last 3 Months or Most Recently Relevant to Health Maintenance Results * XR HIP 2 VW RIGHT PLUS PELVIS (02/27/2025 3:10 PM EST) Anatomical Region Laterality Modality Hip Right Computed Radiogr aphy 02/28/2025 9:04 AM EST Impressions 02/28/2025 9:15 AM EST 1. Mild to moderate right hip osteoarthritis. Narrative 02/28/2025 9:15 AM EST XR HIP 2 VW RIGHT PLUS PELVIS Referring clinician's provided indication for this examination in Epic: Pain COMPARISON: None. FINDINGS: Pelvis: No displaced fracture. Partially seen convex levocurvature of the lower lumbar spine associated with degenerative changes. Mild degenerative changes of the bilateral sacroiliac joints and pubic symphysis. Frontal evaluation of the left hip demonstrates hypertrophic changes with mild medial joint space. Mild stool burden. Right hip: No displaced fracture. Normal alignment. Hypertrophic changes with marginal osteophytes, subchondral cystic changes and mild to moderate medial joint space narrowing. Tiny soft tissue mineralization is seen surrounding the right greater trochanter. Procedure Note Wild Bernal MD - 02/28/2025 XR HIP 2 VW RIGHT PLUS PELVIS Referring clinician's provided indication for this examination in Epic:Pain COMPARISON: None. FINDINGS: Pelvis: No displaced fracture. Partially seen convex levocurvature of thelower lumbar spine associated with degenerative changes. Mild degenerativechanges of the bilateral sacroiliac joints and pubic symphysis. Frontalevaluation of the left hip demonstrates hypertrophic changes with mildmedial joint space. Mild stool burden. Right hip: No displaced fracture. Normal alignment. Hypertrophic changeswith marginal osteophytes, subchondral cystic changes and mild to moderatemedial joint space narrowing. Tiny soft tissue mineralization is seensurrounding the right greater trochanter. IMPRESSION: 1. Mild to moderate right hip osteoarthritis. us Chet Dhillon MD IMG XR PELVIS Final Result * Hepatitis C antibody, qualitative (10/17/2024 3:48 PM EDT) HCV NON-REACTIV E NON-REACTI VE [facility] Blood 10/17/2024 3:48 PM EDT 10/17/2024 3:52 PM EDT us Alexey Woods CHIEF OPHTHALMIC TECHNICIAN LAB BLOOD BKR ORDERAB LES Final Result [address] [address] * (ABNORMAL) Lipid panel (05/15/2024 3:43 PM EST) HDL 105 mg/dL [facility] Comment: Interpretation <40 mg/dL: Low HDL cholesterol (major risk factor for CHD) Greater than or equal to 60 mg/dL: High HDL cholesterol ( negative risk factor for CHD) HDL - cholesterol is affected by a number of factors, e.g. smoking, excerise, hormones, sex and age. CHOLESTEROL 253(H) 0 - 240 mg/dL [facility] TRIGLYCERIDES 79 30 - 160 mg/dL [facility] LDL 132(H) 50 - 129 mg/dL [facility] Comment: LDL levels in terms of risk for coronary heart disease: <100 mg/dL: Optimal 100-129 mg/dL: Near or above optimal 130-159 mg/dL: Borderline high 160-189 mg/dL: High >190 mg/dL: Very High CARDIAC RISK RATIO 2.4(L) 3.3 - 4.4 C [facility] Blood 05/15/2024 3:43 PM EST 05/15/2024 3:46 PM EST Alexey Woods CHIEF OPHTHALMIC TECHNICIAN LAB BLOOD BKR ORDERAB LES Final Result [address] [address] from Last 3 Months or Most Recently Relevant to Health Maintenance [place] [address] [place] [address] [place] [address] Member Subscriber Plan / Payer (Ef fective 2023-Present) Name:Julieth Tse Relation to Subscriber:Self Name:Julieth Tse Payer ID:Not on file Type:HMO Address: [place] [id number] [place] [address] [place] [address] [facility] Care Teams Delicatessen Clerk Relationship Specialty Start Date End Date Alexey Woods NP [address] [place] [address] PCP - General Nurse Practitioner 09/20/24 Additional Source Comments The information contained in this document represents components of the legal health record. It is not the complete legal health record.[facility]
--- OUTSIDE RECORDS SUMMARY | 2025-03-12 15:04 | XMS_ITS | Encounter Summary ---
Author Organization [facility] Address [address] [place] [address] Phone Care Team Providers Care Laser Engineer Name Role Phone Alexey Woods DRAFTER (CAD) ELECTRICAL Primary Care Provide r Encounter Details Date Type Department Care Team ([facility] st Contact Info) Description 02/27/2025 Ancillary Orders [facility], X-Ray - [address] [place] [address] Chet Dhillon MD [address] [place] [address] [email or web address] Right hip pain (Primary Dx) Social History Tobacco Use Types [...] st Contact Info) Description 02/20/2025 Procedure Pass [address] [place] [address] 02/20/2025 Procedure Pass [address] [place] [address] 03/12/2025 6:30 PM EST Hospital Encounter [facility], Bone Density - [address] [address] Alexey Woods NP 70 [facility] [place] [address] 03/26/2025 3:15 PM EST Appointment [address] [place] [address] Chet Dhillon MD [address] [place] [address] [email or web address] 03/26/2025 4:00 PM EST Appointment [address] [place] [address] Chet Dhillon MD [address] [place] [address] [email or web address] 06/11/2025 9:00 AM EST Office Visit [facility] Rheumatology [address] [place] [address] Rula Wu, DO [address] [place] [address], [facility] [address] [place] [address] [email or web address] documented as of this encounter Results * XR HIP 2 VW RIGHT [...] 1. Mild to moderate right hip osteoarthritis. Chet Dhillon MD IMG XR PELVIS Final Result documented in this encounter Visit Diagnoses Diagnosis Right hip pain- Primary Pain in joint, pelvic region and thigh Right hip pain Pain in joint, pelvic region and thigh documented in this encounter Care Teams Laser Engineer Relationship Specialty Start Date End Date Alexey Woods NP [address] [place] [address] PCP - General Nurse Practitioner 09/20/24 documented as of this encounter Additional Source Comments The information contained in this document represents components of the legal health record. It is not the complete legal health record.[facility]
--- OUTSIDE RECORDS SUMMARY | 2025-03-12 18:30 | XMS_ITS | Encounter Summary ---
Author Organization [facility] Address [address] [place] [address] Phone Care Team Providers Care Supervisor Accounts Receivable Name Role Phone Alexey Woods NP Primary Care Provide r Reason for Visit * Auth/Cert (Routine) Specialty Diagnoses / Procedures Referred By Contac t Referred To Contact Referral ID Status Reason Start Date Expiration Date Visits Re quested Visits Authorized [id number] 1 1 Encounter Details Date Type Department Care Team (Late st Contact Info) Description 03/12/2025 6:[address] [facility] Hospital Encounter [facility], Bone Density - [address] [address] Alexey Woods, IVANNA [address] [place] [address] Social History Tobacco Use Types Packs/Day Years [...] enough money to get more. Never True 06/12/202 5 Residential Stability Answer Date Recor ded What is your housing situation today? I have jina lazaro 09/20/2024 How many times have you move [...] st Contact Info) Description 02/20/2025 Procedure Pass [address] [place] [address] 02/20/2025 Procedure Pass [address] [place] [address] 03/26/2025 3:15 PM EST Appointment [address] [place] [address] Chet Dhillon MD [address] [place] [address] [email or web address] 03/26/2025 4:00 PM EST Appointment [facility], [address] [place] [address] Chet Dhillon MD [address] [place] [address] [email or web address] 06/11/2025 9:00 AM EST Office Visit [facility] Rheumatology [address] [place] [address] Rula Wu, [address], [address] [place] [address] [email or web address] Scheduled Orders Name Type Priority Associated Diagnoses Orde r Schedule DXA Screening Imaging Routine Low back pain, unspecified back pain laterality, unspecified chronicity, unspecified whether sciatica present Scoliosis of thoracic spine, unspecified scoliosis type Expected: 05/15/2024, Expires: 05/15/2025 documented as of this encounter Visit Diagnoses Not on filedocumented in this encounter Care Teams Supervisor Accounts Receivable Relationship Specialty Start Date End Date Alexey Woods NP [address] [place] [address] PCP - General Nurse Practitioner 09/20/24 documented as of this encounter Additional Source Comments The information contained in this document represents components of the legal health record. It is not the complete legal health record.[facility]
== END 2025-03-12 13:40 | disposition home or self-care (01) ==
LOC: HO.HSM 13:09
PROVIDERS: Visit Provider Psychiatry & Neurology Neurology
DX: H81.01 Meniere's disease, right ear (principal); R27.0 Ataxia, unspecified
CPT/HCPCS: 99204